=== PATIENT | male | born 1935 | race Caucasian/White ===

== ENCOUNTER 2016-05-29 09:06 | Outpatient (CLI) | payer MEDICARE | END 2016-05-29 09:07 | disposition home or self-care (01) | DX: I48.91 Unspecified atrial fibrillation (principal) ==

== ENCOUNTER 2016-06-25 08:43 | Observation (INO) | payer MEDICARE ==
[2016-06-25] MEDS ORDERED: METOPROLOL 5 MG/5 ML VIAL IVP STA (08:58)
[2016-06-25] MEDS ORDERED: LEVALBUTEROL 1.25 MG INH STA ×2 (08:58→11:03)
[2016-06-25] MEDS ORDERED: LEVALBUTEROL 1.25 MG INH ONE ×2 (09:06→11:16)
[2016-06-25] MEDS ORDERED: SODIUM CHLORIDE INHALATION 3 ML NEB ONE ×2 (09:06→11:16)
[2016-06-25] MEDS ORDERED: METOPROLOL 5 MG/5 ML VIAL IVP ONE (09:24)
[2016-06-25] MEDS ORDERED: BENZONATATE 100 MG CAPSULE PO STA (12:55)
[2016-06-25] MEDS ORDERED: methylPREDNISolone SUCCINATE 125 MG/2 ML VIAL IVP STA (12:55)
[2016-06-25] MEDS ORDERED: guaiFENesin/CODEINE 5 ML UDC PO STA (12:55)
[2016-06-25] MEDS ORDERED: methylPREDNISolone SUCCINATE 125 MG/2 ML VIAL IVP ONE ×2 (13:07→19:15)
[2016-06-25] MEDS ORDERED: guaiFENesin/CODEINE 5 ML UDC ONE (13:07)
[2016-06-25] MEDS ORDERED: BENZONATATE 100 MG CAPSULE PO ONE (13:07)
[2016-06-25] MEDS ORDERED: SODIUM CHLORIDE FLUSH 0.9% 10 ML SYRINGE IVP PRN (14:16)
[2016-06-25] MEDS ORDERED: ACETAMINOPHEN 325 MG TABLET PO PRN (14:16)
[2016-06-25] MEDS ORDERED: ONDANSETRON ODT 4 MG TABLET TL PRN (14:16)
[2016-06-25] MEDS: NEUTRA-PHOS 250 MG TABLET PO SCH (18:31)
[2016-06-25] MEDS: BENZONATATE 100 MG CAPSULE PO PRN (19:10)
[2016-06-25] MEDS: SODIUM CHLORIDE FLUSH 0.9% 10 ML SYRINGE IVP SCH (19:10)
[2016-06-25] MEDS ORDERED: amLODIPine 5 MG TABLET PO SCH (21:56)
[2016-06-25] MEDS ORDERED: METOPROLOL SUCCINATE 50 MG TABLET PO SCH (21:57)
[2016-06-25] MEDS: SODIUM CHLORIDE INHALATION 3 ML NEB INH PRN (22:00)
[2016-06-25] MEDS: LEVALBUTEROL 1.25 MG INH PRN (22:00)
[2016-06-26] MEDS: BENZONATATE 100 MG CAPSULE PO PRN (05:37)
[2016-06-26] MEDS: SODIUM CHLORIDE FLUSH 0.9% 10 ML SYRINGE IVP SCH (05:37)
[2016-06-26] MEDS ORDERED: METOPROLOL TARTRATE 25 MG TABLET PO SCH (07:16)
[2016-06-26] MEDS: LEVALBUTEROL 1.25 MG INH PRN (07:38)
[2016-06-26] MEDS: SODIUM CHLORIDE INHALATION 3 ML NEB INH PRN (07:38)
[2016-06-26] MEDS ORDERED: hydroCHLOROthiazide 25 MG TABLET PO SCH (09:00)
[2016-06-26] MEDS ORDERED: FAMOTIDINE 20 MG TABLET PO SCH (09:00)
[2016-06-26] MEDS ORDERED: FUROSEMIDE 20 MG/2 ML VIAL IVP SCH (09:00)
[2016-06-26] MEDS ORDERED: PRAVASTATIN 40 MG TABLET PO SCH (09:00)
[2016-06-26] MEDS ORDERED: FINASTERIDE 5 MG TABLET PO SCH (09:00)
[2016-06-26] MEDS ORDERED: METOPROLOL SUCCINATE 50 MG TABLET PO SCH (09:00)
[2016-06-26] MEDS ORDERED: ASPIRIN EC 81 MG TABLET PO SCH (09:00)
[2016-06-26] MEDS ORDERED: POLYETHYLENE GLYCOL 3350 17 GM PACKET PO SCH (09:00)
[2016-06-26] MEDS ORDERED: amLODIPine 5 MG TABLET PO SCH (09:00)
[2016-06-26] MEDS: NEUTRA-PHOS 250 MG TABLET PO SCH (09:08)
== END 2016-06-26 11:38 | disposition home or self-care (01) ==
DX: J06.9 Acute upper respiratory infection, unspecified (principal); R55 Syncope and collapse; I48.2 Chronic atrial fibrillation; I25.10 Atherosclerotic heart disease of native coronary artery without angina pectoris; I10 Essential (primary) hypertension; G47.33 Obstructive sleep apnea (adult) (pediatric); N40.0 Benign prostatic hyperplasia without lower urinary tract symptoms; I25.2 Old myocardial infarction; Z79.01 Long term (current) use of anticoagulants; Z95.1 Presence of aortocoronary bypass graft; Z85.828 Personal history of other malignant neoplasm of skin; Z79.82 Long term (current) use of aspirin; E66.9 Obesity, unspecified; Z68.34 Body mass index [BMI] 34.0-34.9, adult; Z91.19 Patient's noncompliance with other medical treatment and regimen; Z66 Do not resuscitate
CPT/HCPCS: 36415; 71010; 80048; 80053; 80061; 81001; 83036; 83735; 83880; 84100; 84443; 84481; 84484; 85025; 85610; 85651; 86140; 93005; 93010; 93306; 93880; 94640; 96374; 96375; 99284; A9270; G0378

== ENCOUNTER 2016-07-28 10:14 | Outpatient (CLI) | payer MEDICARE | END 2016-07-28 10:15 | disposition home or self-care (01) | LOC: LAB.F 10:14 | PROVIDERS: ATTEND Internal Medicine | DX: I48.91 Unspecified atrial fibrillation (principal) | CPT/HCPCS: 85610 ==

== ENCOUNTER 2016-08-28 12:30 | Outpatient (CLI) | payer MEDICARE | END 2016-08-28 12:31 | disposition home or self-care (01) | LOC: LAB.F 12:30 | PROVIDERS: ATTEND Internal Medicine | DX: I48.91 Unspecified atrial fibrillation (principal) | CPT/HCPCS: 85610 ==

== ENCOUNTER 2016-09-18 07:06 | Day surgery (SDC) | payer MEDICARE ==
[2016-09-18] MEDS ORDERED: KETOROLAC 0.45% OPHTH DROPS ONE (07:15)
[2016-09-18] MEDS ORDERED: PHENYLEPHRINE 2.5% OPHTH 2 ML DROPS ONE (07:15)
[2016-09-18] MEDS ORDERED: CYCLOPENTOLATE 1% OPHTH DROPS 2 ML ONE (07:15)
[2016-09-18] MEDS ORDERED: PROPARACAINE 0.5% OPHTH DROPS 15 ML ONE (07:15)
[2016-09-18] MEDS ORDERED: PHENYLEPHRINE 2.5% OPHTH 2 ML DROPS OPTH ONE (07:40)
[2016-09-18] MEDS ORDERED: CYCLOPENTOLATE 1% OPHTH DROPS 2 ML OPTH ONE (07:40)
[2016-09-18] MEDS ORDERED: KETOROLAC 0.45% OPHTH DROPS OPTH ONE (07:40)
[2016-09-18] MEDS ORDERED: LACTATED RINGERS 500 ML IV ONE (07:40)
[2016-09-18] MEDS ORDERED: PROPARACAINE 0.5% OPHTH DROPS 15 ML OPTH ONE ×2 (07:40→09:06)
[2016-09-18] MEDS ORDERED: EPINEPHrine 1 MG/ML AMP IVP ONE (09:11)
[2016-09-18] MEDS ORDERED: BRIMONIDINE 0.2% OPHTH DROPS 5 ML OPTH ONE (09:11)
[2016-09-18] MEDS ORDERED: TIMOLOL 0.5% OPHTH DROPS OPTH ONE (09:12)
[2016-09-18] MEDS ORDERED: TRIAMCIN/MOXIFLOX/VANCO 1 ML VIAL IO ONE ×2 (09:12)
[2016-09-18] MEDS ORDERED: CHONDR SULF/HYALURONATE SYRINGE IO ONE (09:12)
[2016-09-18] MEDS ORDERED: BSS/LIDOCAINE/EPINEPHRINE 1 ML SYRINGE IO ONE (09:12)
[2016-09-18] MEDS ORDERED: MIDAZOLAM 2 MG/2 ML VIAL IVP ONE (09:14)
[2016-09-18 09:56] VITALS: BP 133/94
--- NOTE | 2016-09-18 10:10 | OPERATIVE REPORT ---
DATE OF SURGERY: 09/18/2016 00:00:00 PREOPERATIVE DIAGNOSIS: Visually significant cataract, left eye. This was his first cataract surgery. POSTOPERATIVE DIAGNOSIS: Visually significant cataract, left eye. This was his first cataract surgery . NAME OF PROCEDURE: Phacoemulsification with posterior chamber intraocular lens implant, left eye. SURGEON: Jevon Harper MD ANESTHESIA: Monitored anesthesia care. COMPLICATIONS: None. OPERATIVE INDICATIONS: This is an 81-year-old man with progressive vision loss in the left eye due to 1-2+ nuclear sclerotic and 3+ cortical cataract. Best corrected visual acuity was 20/40 with glare t o 20/200 in the left eye. Indications for surgery were overall decrease in vision and difficulty trac edi a golf ball. He was consented at length concerning the risks and benefits of cataract surgery af ter which he expressed a desire to proceed with surgery. OPERATIVE PROCEDURE: The patient was taken into OR #2 and placed under monitored anesthesia care. A s urgical time-out was conducted confirming correct patient, correct procedure and correct surgical sit e. He was given topical anesthesia and then prepped and draped in the usual sterile fashion. The eye was entered at the 6- and 3 o'clock positions. Intracameral Shugarcaine was injected into the anterio r chamber followed by Viscoat. 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 Intracameral Shugarcaine was injected in to the anterior chamber followed by Viscoat. A continuous tear curvilinear capsulorrhexis was perform ed. The nucleus was hydrodissected and phacoemulsified. There was some instability of the iris, but n ot so much that it was too difficult to continue the case. The cortex was evacuated using automated i nfusion and aspiration. Provisc was injected in the capsular bag and a 21.5 diopter intraocular lens was inserted into the bag. Approximately 0.7 mL of a mixture of triamcinolone, moxifloxacin, and vanc omycin was injected subconjunctivally in the superior quadrant for infection and inflammation prophyl axis. I/A was used to evacuate the viscoelastic materials. The eye was inflated to physiologic pressu re using balanced salt solution and found to be watertight. The patient was taken from the operating room in good condition and given postoperative instructions. JOB #: [id number] EXT JOB #:[id number]
== END 2016-09-18 07:07 | disposition home or self-care (01) ==
LOC: SDS 07:06
PROVIDERS: ATTEND Ophthalmology
PROC: 08RK3JZ Replacement of Left Lens with Synthetic Substitute, Percutaneous Approach (ICD-10-PCS; principal; 2016-09-18 08:30)
DX: H25.812 Combined forms of age-related cataract, left eye (principal); E78.00 Pure hypercholesterolemia, unspecified; I25.10 Atherosclerotic heart disease of native coronary artery without angina pectoris; I25.2 Old myocardial infarction; N40.0 Benign prostatic hyperplasia without lower urinary tract symptoms; I11.0 Hypertensive heart disease with heart failure; I50.9 Heart failure, unspecified; E78.5 Hyperlipidemia, unspecified; Z79.01 Long term (current) use of anticoagulants; Z95.1 Presence of aortocoronary bypass graft
CPT/HCPCS: 66984; A9270; J3490; V2632

== ENCOUNTER → 2016-10-06 | Outpatient (CLI) | payer MEDICARE | LOC: LAB.F 08:00 | PROVIDERS: ATTEND Internal Medicine | DX: I48.91 Unspecified atrial fibrillation (principal) | CPT/HCPCS: 85610 ==

== ENCOUNTER 2016-11-05 08:57 | Outpatient (CLI) | payer MEDICARE | END 2016-11-05 08:58 | disposition home or self-care (01) | LOC: LAB.F 08:57 | PROVIDERS: ATTEND Internal Medicine | DX: I48.91 Unspecified atrial fibrillation (principal) | CPT/HCPCS: 85610 ==

== ENCOUNTER 2016-11-19 08:56 | Outpatient (CLI) | payer MEDICARE ==
[2016-11-19 13:54] LABS: ALBUMIN/GLOBULIN RATIO 1.6 (1.0-2.2); BILIRUBIN,TOTAL 0.8 mg/dL (0.2-1.0); BUN - BLOOD UREA NITROGEN 14 mg/dL (6-20); CARBON DIOXIDE - CO2 26 mmol/L (21-32); CHLORIDE 103 mmol/L (101-111); CHOL/HDL RATIO 3.9 (<5.0); CHOLESTEROL 138 mg/dL; CREATININE 0.9 mg/dL (0.6-1.2); GFR - MDRD 81 (>89); GLUCOSE 98 mg/dL (70-100); HDL CHOLESTEROL 35 mg/dL; SODIUM 137 mmol/L (135-145); TOTAL PROTEIN 6.8 g/dL (6.7-8.2); TRIGLYCERIDES 167 mg/dL; VLDL CHOLESTEROL 33 mg/dL
[2016-11-19 14:07] LABS: BASOPHILS # (AUTO) 0.1 10^3/uL (0.0-0.1); BASOPHILS % (AUTO) 0.6 %; EOSINOPHILS # (AUTO) 0.2 10^3/uL (0.0-0.7); HCT - HEMATOCRIT 44.1 % (42.0-52.0); HGB - HEMOGLOBIN 14.5 g/dL (14.0-18.0); LYMPHOCYTES # (AUTO) 3.2 10^3/uL (1.5-3.5); LYMPHOCYTES % (AUTO) 32.2 %; MEAN CORPUSCULAR HEMOGLOBIN 27.1 pg (27.0-31.0); MEAN CORPUSCULAR HGB CONC 32.8 g/dL (32.0-36.0); MEAN CORPUSCULAR VOLUME 82.6 fL (80.0-94.0); MEAN PLATELET VOLUME 9.4 fL (7.4-11.4); MONOCYTES # (AUTO) 1.2 10^3/uL (0.0-1.0); MONOCYTES % (AUTO) 11.9 %; NEUTROPHILS # (AUTO) 5.3 10^3/uL (1.5-6.6); NEUTROPHILS % (AUTO) 53.3 %; RED BLOOD COUNT 5.34 10^6/uL (4.70-6.10); RED CELL DISTRIBUTION WIDTH 15.5 % (12.0-15.0); UNCORRECTED WHITE BLOOD COUNT 9.9 x10^3/uL; WHITE BLOOD COUNT 9.9 x10^3/uL (4.8-10.8)
[2016-11-19 14:30] LABS: HEMOGLOBIN A1C 0.68 g/dL
== END 2016-11-19 08:57 | disposition home or self-care (01) ==
LOC: LAB.F 08:56
PROVIDERS: ATTEND Internal Medicine
DX: R73.9 Hyperglycemia, unspecified (principal); E78.5 Hyperlipidemia, unspecified; I25.10 Atherosclerotic heart disease of native coronary artery without angina pectoris; I10 Essential (primary) hypertension; Z79.899 Other long term (current) drug therapy
CPT/HCPCS: 36415; 80053; 80061; 83036; 85025

== ENCOUNTER 2016-12-05 12:47 | Outpatient (CLI) | payer MEDICARE | END 2016-12-05 12:48 | disposition home or self-care (01) | LOC: LAB.F 12:47 | PROVIDERS: ATTEND Internal Medicine | DX: I48.91 Unspecified atrial fibrillation (principal) | CPT/HCPCS: 85610 ==

== ENCOUNTER 2017-05-22 08:44 | Outpatient (CLI) | payer MEDICARE | END 2017-05-22 08:45 | disposition home or self-care (01) | LOC: LAB.F 08:44 | PROVIDERS: ATTEND Internal Medicine | DX: I48.91 Unspecified atrial fibrillation (principal) | CPT/HCPCS: 85610 ==

== ENCOUNTER 2017-06-03 10:17 | Outpatient (CLI) | payer MEDICARE | END 2017-06-03 10:18 | disposition home or self-care (01) | LOC: LAB.F 10:17 | PROVIDERS: ATTEND Internal Medicine | DX: I48.91 Unspecified atrial fibrillation (principal) | CPT/HCPCS: 85610 ==

== ENCOUNTER 2017-06-17 10:23 | Outpatient (CLI) | payer MEDICARE | END 2017-06-17 10:24 | disposition home or self-care (01) | LOC: LAB.F 10:23 | PROVIDERS: ATTEND Internal Medicine | DX: I48.91 Unspecified atrial fibrillation (principal) | CPT/HCPCS: 85610 ==

== ENCOUNTER 2017-07-02 08:49 | Day surgery (SDC) | payer MEDICARE ==
[2017-07-02] MEDS ORDERED: PROPARACAINE 0.5% OPHTH DROPS 15 ML ONE ×2 (09:20→09:52)
[2017-07-02] MEDS ORDERED: KETOROLAC 0.45% OPHTH DROPS ONE (09:20)
[2017-07-02] MEDS ORDERED: CYCLOPENTOLATE 1% OPHTH DROPS 2 ML ONE (09:50)
[2017-07-02] MEDS ORDERED: PHENYLEPHRINE 2.5% OPHTH 2 ML DROPS ONE (09:50)
[2017-07-02] MEDS ORDERED: LACTATED RINGERS 500 ML IV ONE (10:06)
[2017-07-02] MEDS ORDERED: MIDAZOLAM 2 MG/2 ML VIAL IVP ONE (10:12)
[2017-07-02] MEDS ORDERED: TIMOLOL 0.5% OPHTH DROPS OPTH ONE (10:15)
[2017-07-02] MEDS ORDERED: EPINEPHrine 1 MG/ML AMP IVP ONE (10:15)
[2017-07-02] MEDS ORDERED: BRIMONIDINE 0.2% OPHTH DROPS 5 ML OPTH ONE (10:15)
[2017-07-02] MEDS ORDERED: CHONDR SULF/HYALURONATE SYRINGE IO ONE (10:15)
[2017-07-02] MEDS ORDERED: BSS/LIDOCAINE/EPINEPHRINE 1 ML SYRINGE IO ONE (10:16)
[2017-07-02] MEDS ORDERED: TRIAMCIN/MOXIFLOX/VANCO 1 ML VIAL IO ONE (10:16)
[2017-07-02] MEDS ORDERED: PROPARACAINE 0.5% OPHTH DROPS 15 ML RIGHTEYE ONE (10:17)
[2017-07-02 10:43] VITALS: BP 119/87
--- NOTE | 2017-07-02 11:19 | OPERATIVE REPORT ---
DATE OF SERVICE: 07/02/2017 Physician: Jevon Harper MD PREOPERATIVE DIAGNOSIS: Visually significant cataract, right eye. Cataract surgery was performed on the left eye on 09/18/2016. This was a complex surgery due to Flomax causing floppy iris syndrome, so a Malyugin ring was used. POSTOPERATIVE DIAGNOSIS: Visually significant cataract, right eye. Cataract surgery was performed on the left eye on 09/18/2016. This was a complex surgery due to Flomax causing floppy iris syndrome, so a Malyugin ring was used. PROCEDURE PERFORMED: Phacoemulsification with posterior chamber intraocular lens implant, right eye. SURGEON: Jevon Harper M.D. ANESTHESIA: Monitored anesthesia care. COMPLICATIONS: None. OPERATIVE INDICATIONS: This is an 82-year-old man with progressive vision loss in the right eye due to 2+ nuclear sclerotic and 3+ cortical cataract. Best corrected visual acuity was 20/40 with glare to 20/80 in the left eye. Indications for surgery were overall decrease in vision and difficulty tracking a golf ball. He was consented at length concerning risks and benefits of cataract surgery, after which he expressed a desire to proceed with surgery. OPERATIVE PROCEDURE: The patient was taken to the OR #3 and placed under monitored anesthesia care. A surgical timeout was conducted confirming correct patient, correct procedure, and correct surgical site. He was given topical anesthesia and prepped and draped in the usual sterile fashion. The eye was entered at the 12 and 9 o'clock positions. Intracameral Shugarcaine was injected into the anterior chamber, followed by Viscoat. A Malyugin ring was then inserted into the anterior chamber and engaged the pupil at 4 points to dilate and stabilize the iris. A continuous curvilinear capsulorrhexis was then performed. Nucleus was hydrodissected and phacoemulsified. The cortex was evacuated using automated infusion and aspiration. Provisc was injected in the capsular bag, and a 22.0 diopter intraocular lens was inserted into the bag. Approximately 0.7 mL of a mixture of triamcinolone and moxifloxacin was injected subconjunctivally in the superior quadrant. An additional 0.4 mL of vancomycin was also injected in the superior conjunctiva for infection and inflammation prophylaxis. Malyugin ring was then disinserted from the pupil and removed from the anterior chamber without trauma. I and A was then used to evacuate the viscoelastic materials. The eye was inflated to physiologic pressure using balanced salt solution and found to be watertight. The patient was taken from the operating room in good condition and given postoperative instructions. TD: 07/02/2017 10:37
== END 2017-07-02 08:50 | disposition home or self-care (01) ==
LOC: SDS 08:49
PROVIDERS: ATTEND Ophthalmology
PROC: 08RJ3JZ Replacement of Right Lens with Synthetic Substitute, Percutaneous Approach (ICD-10-PCS; principal; 2017-07-02 10:00)
DX: H25.811 Combined forms of age-related cataract, right eye (principal); H21.81 Floppy iris syndrome; T44.6X5A Adverse effect of alpha-adrenoreceptor antagonists, initial encounter; I10 Essential (primary) hypertension; Z79.01 Long term (current) use of anticoagulants
CPT/HCPCS: 66982; A9270; J3490; J7120; V2632

== ENCOUNTER 2017-07-16 13:19 | Outpatient (CLI) | payer MEDICARE | END 2017-07-16 13:20 | disposition home or self-care (01) | LOC: LAB.F 13:19 | PROVIDERS: ATTEND Internal Medicine | DX: I48.91 Unspecified atrial fibrillation (principal) | CPT/HCPCS: 85610 ==

== ENCOUNTER 2017-07-30 09:12 | Outpatient (CLI) | payer MEDICARE ==
[2017-07-30 14:34] LABS: BASOPHILS # (AUTO) 0.1 10^3/uL (0.0-0.1); BASOPHILS % (AUTO) 1.3 %; EOSINOPHILS # (AUTO) 0.2 10^3/uL (0.0-0.7); EOSINOPHILS % (AUTO) 1.4 %; HGB - HEMOGLOBIN 13.7 g/dL (14.0-18.0); LYMPHOCYTES # (AUTO) 3.6 10^3/uL (1.5-3.5); LYMPHOCYTES % (AUTO) 32.5 %; MEAN CORPUSCULAR HEMOGLOBIN 27.5 pg (27.0-31.0); MEAN CORPUSCULAR HGB CONC 32.6 g/dL (32.0-36.0); MEAN CORPUSCULAR VOLUME 84.4 fL (80.0-94.0); MEAN PLATELET VOLUME 8.4 fL (7.4-11.4); MONOCYTES # (AUTO) 1.3 10^3/uL (0.0-1.0); MONOCYTES % (AUTO) 11.7 %; NEUTROPHILS # (AUTO) 5.8 10^3/uL (1.5-6.6); NEUTROPHILS % (AUTO) 53.1 %; PLT - PLATELET COUNT 178 10^3/uL (130-450); RED BLOOD COUNT 4.98 10^6/uL (4.70-6.10); RED CELL DISTRIBUTION WIDTH 16.4 % (12.0-15.0); WHITE BLOOD COUNT 10.9 x10^3/uL (4.8-10.8)
[2017-07-30 14:49] LABS: CALCIUM 8.6 mg/dL (8.5-10.3); CREATININE 0.9 mg/dL (0.6-1.2)
--- NOTE | 2017-07-30 16:02 | XRAY Report ---
Procedure Date: 07/30/2017 Accession Number: [id number] / [id number] Procedure: XR - Chest 2 View X-Ray CPT Code: 49976 FULL RESULT: EXAM: Chest 2 View X-Ray DATE: 07/30/2017 3:15 PM CLINICAL HISTORY: ATRIAL FIBRILLATION COMPARISON: 06/25/2016 and 09/05/2013 TECHNIQUE: 2 views. FINDINGS: Lungs/Pleura: No focal opacities evident. No pneumothorax. Small left pleural effusion.. Normal volumes. Mediastinum: Status post CABG. Heart size borderline. Other: Degenerative change in the spine.. Impression: Borderline heart size status post CABG with tiny left effusion. Otherwise -2 view chest x-ray RADIA
== END 2017-07-30 09:13 | disposition home or self-care (01) ==
LOC: LAB.F 09:12 → LAB 09:13
PROVIDERS: ATTEND Internal Medicine Cardiovascular Disease
DX: I48.91 Unspecified atrial fibrillation (principal); J90 Pleural effusion, not elsewhere classified; I10 Essential (primary) hypertension; I48.2 Chronic atrial fibrillation; R06.09 Other forms of dyspnea
CPT/HCPCS: 36415; 71046; 80048; 82565; 83880; 84132; 84520; 85025; 85610

== ENCOUNTER 2017-08-20 09:50 | Outpatient (CLI) | payer MEDICARE | END 2017-08-20 09:51 | disposition home or self-care (01) | LOC: LAB.F 09:50 | PROVIDERS: ATTEND Internal Medicine | DX: I48.91 Unspecified atrial fibrillation (principal) | CPT/HCPCS: 85610 ==

== ENCOUNTER 2017-09-04 10:00 | Outpatient (CLI) | payer MEDICARE | END 2017-09-04 10:01 | disposition home or self-care (01) | LOC: LAB 10:00 | PROVIDERS: ATTEND Internal Medicine | DX: R06.00 Dyspnea, unspecified (principal); R05 Cough | CPT/HCPCS: 36415; 81599 ==

== ENCOUNTER 2017-09-09 13:03 | Outpatient (CLI) | payer MEDICARE | END 2017-09-09 13:04 | disposition home or self-care (01) | LOC: LAB.F 13:03 | PROVIDERS: ATTEND Internal Medicine | DX: I48.91 Unspecified atrial fibrillation (principal) | CPT/HCPCS: 85610 ==

== ENCOUNTER 2017-10-07 10:37 | Outpatient (CLI) | payer MEDICARE | END 2017-10-07 10:38 | disposition home or self-care (01) | LOC: LAB.F 10:37 | PROVIDERS: ATTEND Internal Medicine | DX: I48.91 Unspecified atrial fibrillation (principal) | CPT/HCPCS: 85610 ==

== ENCOUNTER 2017-10-21 11:19 | Outpatient (CLI) | payer MEDICARE | END 2017-10-21 11:20 | disposition home or self-care (01) | LOC: LAB.F 11:19 | PROVIDERS: ATTEND Internal Medicine | DX: I48.91 Unspecified atrial fibrillation (principal) | CPT/HCPCS: 85610 ==

== ENCOUNTER 2017-11-16 10:09 | Outpatient (CLI) | payer MEDICARE | END 2017-11-16 10:10 | disposition home or self-care (01) | LOC: LAB.F 10:09 | PROVIDERS: ATTEND Internal Medicine | DX: I48.91 Unspecified atrial fibrillation (principal) | CPT/HCPCS: 85610 ==

== ENCOUNTER 2017-12-03 10:31 | Outpatient (CLI) | payer MEDICARE | END 2017-12-03 10:32 | disposition home or self-care (01) | LOC: LAB.F 10:31 | PROVIDERS: ATTEND Internal Medicine | DX: I48.91 Unspecified atrial fibrillation (principal) | CPT/HCPCS: 85610 ==

== ENCOUNTER 2018-05-10 09:53 | Outpatient (CLI) | payer MEDICARE | END 2018-05-10 09:54 | disposition home or self-care (01) | LOC: LAB.F 09:53 | PROVIDERS: ATTEND Internal Medicine | DX: I48.91 Unspecified atrial fibrillation (principal); Z79.01 Long term (current) use of anticoagulants | CPT/HCPCS: 85610 ==

== ENCOUNTER 2018-05-17 10:01 | Outpatient (CLI) | payer MEDICARE | END 2018-05-17 10:02 | disposition home or self-care (01) | LOC: LAB.F 10:01 | PROVIDERS: ATTEND Internal Medicine | DX: I48.91 Unspecified atrial fibrillation (principal); Z79.01 Long term (current) use of anticoagulants | CPT/HCPCS: 85610 ==

== ENCOUNTER 2018-05-24 10:36 | Outpatient (CLI) | payer MEDICARE | END 2018-05-24 10:37 | disposition home or self-care (01) | LOC: LAB.F 10:36 | PROVIDERS: ATTEND Internal Medicine | DX: Z79.01 Long term (current) use of anticoagulants (principal); I48.91 Unspecified atrial fibrillation | CPT/HCPCS: 85610 ==

== ENCOUNTER 2018-05-31 13:10 | Outpatient (CLI) | payer MEDICARE | END 2018-05-31 13:11 | disposition home or self-care (01) | LOC: LAB.F 13:10 | PROVIDERS: ATTEND Internal Medicine | DX: I48.91 Unspecified atrial fibrillation (principal); Z79.01 Long term (current) use of anticoagulants | CPT/HCPCS: 85610 ==

== ENCOUNTER 2018-06-08 10:21 | Outpatient (CLI) | payer MEDICARE | END 2018-06-08 10:22 | disposition home or self-care (01) | LOC: LAB.F 10:21 | PROVIDERS: ATTEND Internal Medicine | DX: I48.91 Unspecified atrial fibrillation (principal); Z79.01 Long term (current) use of anticoagulants | CPT/HCPCS: 85610 ==

== ENCOUNTER 2018-06-15 10:57 | Outpatient (CLI) | payer MEDICARE | END 2018-06-15 10:58 | disposition home or self-care (01) | LOC: LAB.F 10:57 | PROVIDERS: ATTEND Internal Medicine | DX: Z79.01 Long term (current) use of anticoagulants (principal); I48.91 Unspecified atrial fibrillation | CPT/HCPCS: 85610 ==

== ENCOUNTER 2018-07-21 10:56 | Outpatient (CLI) | payer MEDICARE | END 2018-07-21 10:57 | disposition home or self-care (01) | LOC: LAB.F 10:56 | PROVIDERS: ATTEND Internal Medicine | DX: Z79.01 Long term (current) use of anticoagulants (principal); I48.91 Unspecified atrial fibrillation | CPT/HCPCS: 85610 ==

== ENCOUNTER 2018-08-10 08:07 | Outpatient (CLI) | payer MEDICARE ==
--- NOTE | 2018-08-10 13:51 | XRAY Report ---
Reason: DYSPNEA ON EXERTION R06.09 Procedure Date: 08/10/2018 Accession Number: [id number] / [id number] Procedure: XRS - Chest 2 View X-Ray CPT Code: 06200 FULL RESULT: EXAM: CHEST RADIOGRAPHY EXAM DATE: 08/10/2018 08:38 AM. CLINICAL HISTORY: Shortness of breath. COMPARISON: CHEST 2 VIEW 07/30/2017 3:08 PM. TECHNIQUE: 2 views. FINDINGS: Lungs/Pleura: No focal opacities evident. No pleural effusion. No pneumothorax. Normal volumes. Mediastinum: Cardiac silhouette is borderline enlarged. There is borderline pulmonary vascular congestion and edema seen. Median sternotomy wires and surgical clips consistent with CABG is seen. Other: None. IMPRESSION: Borderline CHF/fluid overload. RADIA
== END 2018-08-10 08:08 | disposition home or self-care (01) ==
LOC: DI.S 08:07
PROVIDERS: ATTEND Registered Nurse
DX: I50.9 Heart failure, unspecified (principal)
CPT/HCPCS: 71046

== ENCOUNTER 2018-08-17 08:33 | Outpatient (CLI) | payer MEDICARE ==
[2018-08-17 19:10] LABS: ALBUMIN 4.3 g/dL (3.2-5.5); ALBUMIN/GLOBULIN RATIO 1.4 (1.0-2.2); ALKALINE PHOSPHATASE 77 IU/L (42-121); ALT ALANINE AMINOTRANSFERASE 26 IU/L (10-60); AST ASPARTATE AMINOTRANSFERASE 36 IU/L (10-42); BILIRUBIN,TOTAL 1.5 mg/dL (0.2-1.0); CALCIUM 9.2 mg/dL (8.5-10.3); CARBON DIOXIDE - CO2 24 mmol/L (21-32); CHLORIDE 105 mmol/L (101-111); CHOL/HDL RATIO 4.3 (<5.0); CHOLESTEROL 159 mg/dL; GLUCOSE 100 mg/dL (70-100); HDL CHOLESTEROL 37 mg/dL; LDL CHOLESTEROL,CALCULATED 87 mg/dL; LDL/HDL RATIO 2.4 (<3.6); SODIUM 141 mmol/L (135-145); TOTAL PROTEIN 7.4 g/dL (6.7-8.2); VLDL CHOLESTEROL 35 mg/dL
[2018-08-17 19:20] LABS: BUN - BLOOD UREA NITROGEN 17 mg/dL (6-20); GFR - MDRD 71 (>89)
[2018-08-17 19:32] LABS: HB2 TOTAL 15.5 g/dL; HEMOGLOBIN A1C 0.62 g/dL; HEMOGLOBIN A1C % 5.8 % (4.6-6.2)
== END 2018-08-17 08:34 | disposition home or self-care (01) ==
LOC: LAB.S 08:33
PROVIDERS: ATTEND Internal Medicine
DX: E78.5 Hyperlipidemia, unspecified (principal); I48.91 Unspecified atrial fibrillation; R73.02 Impaired glucose tolerance (oral); Z79.01 Long term (current) use of anticoagulants
CPT/HCPCS: 36415; 80053; 80061; 83036; 83721; 85610

== ENCOUNTER 2018-09-20 13:42 | Outpatient (CLI) | payer MEDICARE | END 2018-09-20 13:43 | disposition home or self-care (01) | LOC: LAB.S 13:42 | PROVIDERS: ATTEND Internal Medicine | DX: I48.91 Unspecified atrial fibrillation (principal); Z79.01 Long term (current) use of anticoagulants | CPT/HCPCS: 85610 ==

== ENCOUNTER 2018-10-20 13:15 | Outpatient (CLI) | payer MEDICARE ==
[2018-10-20 17:46] LABS: CALCIUM 8.9 mg/dL (8.5-10.3); CREATININE 0.9 mg/dL (0.6-1.2)
== END 2018-10-20 13:16 | disposition home or self-care (01) ==
LOC: LAB.S 13:15
PROVIDERS: ATTEND Internal Medicine
DX: Z79.01 Long term (current) use of anticoagulants (principal); I48.91 Unspecified atrial fibrillation
CPT/HCPCS: 36415; 80048; 85610

== ENCOUNTER 2018-10-28 13:19 | Outpatient (CLI) | payer MEDICARE | END 2018-10-28 13:20 | disposition home or self-care (01) | LOC: LAB.S 13:19 | PROVIDERS: ATTEND Internal Medicine | DX: I48.91 Unspecified atrial fibrillation (principal); Z79.01 Long term (current) use of anticoagulants | CPT/HCPCS: 85610 ==

== ENCOUNTER 2018-11-12 13:35 | Outpatient (CLI) | payer MEDICARE | END 2018-11-12 13:36 | disposition home or self-care (01) | LOC: LAB.S 13:35 | PROVIDERS: ATTEND Internal Medicine | DX: I48.91 Unspecified atrial fibrillation (principal); Z79.01 Long term (current) use of anticoagulants | CPT/HCPCS: 85610 ==

== ENCOUNTER 2018-12-03 10:31 | Outpatient (CLI) | payer MEDICARE | END 2018-12-03 10:32 | disposition home or self-care (01) | LOC: LAB.S 10:31 | PROVIDERS: ATTEND Internal Medicine | DX: Z79.01 Long term (current) use of anticoagulants (principal); I48.91 Unspecified atrial fibrillation | CPT/HCPCS: 85610 ==

== ENCOUNTER 2019-04-21 09:26 | Outpatient (CLI) | payer MEDICARE | END 2019-04-21 09:27 | disposition home or self-care (01) | LOC: LAB.S 09:26 | PROVIDERS: ATTEND Internal Medicine | DX: I48.91 Unspecified atrial fibrillation (principal); Z79.01 Long term (current) use of anticoagulants | CPT/HCPCS: 85610 ==

== ENCOUNTER 2019-04-28 10:39 | Outpatient (CLI) | payer MEDICARE | END 2019-04-28 10:40 | disposition home or self-care (01) | LOC: LAB.S 10:39 | PROVIDERS: ATTEND Internal Medicine | DX: I48.91 Unspecified atrial fibrillation (principal); Z79.01 Long term (current) use of anticoagulants | CPT/HCPCS: 85610 ==

== ENCOUNTER 2019-06-07 08:00 | Outpatient (CLI) | payer MEDICARE ==
[2019-06-07 18:12] LABS: BASOPHILS # (AUTO) 0.2 10^3/uL (0.0-0.1); BASOPHILS % (AUTO) 1.7 %; EOSINOPHILS # (AUTO) 1.4 10^3/uL (0.0-0.7); EOSINOPHILS % (AUTO) 10.7 %; HGB - HEMOGLOBIN 15.1 g/dL (14.0-18.0); LYMPHOCYTES # (AUTO) 2.4 10^3/uL (1.5-3.5); LYMPHOCYTES % (AUTO) 18.2 %; MEAN CORPUSCULAR HEMOGLOBIN 28.1 pg (27.0-31.0); MEAN CORPUSCULAR HGB CONC 32.3 g/dL (32.0-36.0); MEAN CORPUSCULAR VOLUME 86.8 fL (80.0-94.0); MEAN PLATELET VOLUME 11.5 fL (7.4-11.4); MONOCYTES # (AUTO) 1.5 10^3/uL (0.0-1.0); MONOCYTES % (AUTO) 11.1 %; NEUTROPHILS # (AUTO) 7.5 10^3/uL (1.5-6.6); NEUTROPHILS % (AUTO) 57.8 %; PLT - PLATELET COUNT 235 10^3/uL (130-450); RED BLOOD COUNT 5.38 10^6/uL (4.70-6.10); RED CELL DISTRIBUTION WIDTH 14.8 % (12.0-15.0)
[2019-06-07 18:28] LABS: ALBUMIN 4.6 g/dL (3.2-5.5); ALBUMIN/GLOBULIN RATIO 1.6 (1.0-2.2); ALKALINE PHOSPHATASE 85 IU/L (42-121); ALT ALANINE AMINOTRANSFERASE 23 IU/L (10-60); AST ASPARTATE AMINOTRANSFERASE 31 IU/L (10-42); BILIRUBIN,TOTAL 0.7 mg/dL (0.2-1.0); BUN - BLOOD UREA NITROGEN 13 mg/dL (6-20); CALCIUM 9.2 mg/dL (8.5-10.3); CARBON DIOXIDE - CO2 24 mmol/L (21-32); CHLORIDE 102 mmol/L (101-111); CHOL/HDL RATIO 4.1 (<5.0); CHOLESTEROL 154 mg/dL; CREATININE 0.8 mg/dL (0.6-1.2); GLUCOSE 106 mg/dL (70-100); HDL CHOLESTEROL 38 mg/dL; LDL CHOLESTEROL,CALCULATED 85 mg/dL; LDL/HDL RATIO 2.2 (<3.6); SODIUM 136 mmol/L (135-145); TOTAL PROTEIN 7.5 g/dL (6.7-8.2); VLDL CHOLESTEROL 31 mg/dL
[2019-06-07 18:35] LABS: PLATELET MORPHOLOGY NORMAL APPEARANCE (NORMAL); RBC MORPHOLOGY (MULTIPLE) NORMAL APPEARANCE (NORMAL)
[2019-06-07 18:36] LABS: DIFFERENTIAL COMMENT MANUAL=AUTO DIFF; PLATELET ESTIMATE, MANUAL NORMAL (130-450,000) (NORMAL)
== END 2019-06-07 23:59 | disposition home or self-care (01) ==
LOC: LAB.WCP 08:00
PROVIDERS: ATTEND Registered Nurse
DX: J45.909 Unspecified asthma, uncomplicated (principal); I50.9 Heart failure, unspecified; E78.5 Hyperlipidemia, unspecified; N40.1 Benign prostatic hyperplasia with lower urinary tract symptoms; N13.8 Other obstructive and reflux uropathy; G47.33 Obstructive sleep apnea (adult) (pediatric); I11.0 Hypertensive heart disease with heart failure
CPT/HCPCS: 36415; 80053; 80061; 83721; 84443; 85025

== ENCOUNTER 2019-06-14 08:00 | Outpatient (CLI) | payer MEDICARE | END 2019-06-14 23:59 | disposition home or self-care (01) | LOC: LAB.WCP 08:00 | PROVIDERS: ATTEND Family Medicine | DX: I48.91 Unspecified atrial fibrillation (principal); R06.09 Other forms of dyspnea; Z79.01 Long term (current) use of anticoagulants | CPT/HCPCS: 36415; 83880 ==

== ENCOUNTER 2019-07-06 12:25 | Emergency (ER) | payer MEDICARE ==
[2019-07-06] MEDS ORDERED: MAGNESIUM CITRATE 296 ML BOTTLE PO STA (14:17)
--- NOTE | 2019-07-06 14:18 | ED Physician Documentation ---
PD HPI ABD PAIN - Stated complaint Stated Complaint: CONSTIPATED - Chief complaint Chief Complaint: Abd Pain - History obtained from History obtained from: Patient (84-year-old gentleman has been constipated for the last 4 days. He has had cramps generally but no severe pain. No rectal pain or pressure. He is tried magnesium Milk of magnesia and Dulcolax without relief. This is never happened before. He is on a new medication, hydralazine, otherwise no clear cause.) Review of Systems Ten Systems: 10 systems reviewed and negative Constitutional: reports: Reviewed and negative Cardiac: reports: Reviewed and negative Respiratory: reports: Reviewed and negative PD PAST MEDICAL HISTORY - Past Medical History Cardiovascular: Congestive heart failure, Hypertension, Coronary artery disease, [place], Atrial fibrillation Respiratory: Shortness of breath, Sleep apnea, Other GI: Colon polyps, Hepatitis : Benign prostate hypertrophy HEENT: Chronic vision loss, Chronic hearing loss Psych: None Musculoskeletal: Osteoarthritis Derm: None - Past Surgical History General: Colonoscopy Cardiovascular: CABG HEENT: Cataracts Derm: Skin cancer surgery - Present Medications Home Medications: Ambulatory Orders Medication Instructions Recorded Confirmed Finasteride [Proscar] 5 mg PO DAILY 08/05/12 07/06/19 Pravastatin Sodium 40 mg PO DAILY 08/05/12 07/06/19 Tamsulosin HCl [Flomax] 0.4 mg PO DAILY 06/26/16 07/06/19 Warfarin Sodium 7.5 mg PO .Q MO, Thu07/01/17 07/06/19 Warfarin [Coumadin] 5 mg PO .Q RAMESH,TU,W,TH,SA 07/01/17 07/06/19 Cetirizine [ZyrTEC] 10 mg PO DAILY 07/06/19 07/06/19 Furosemide [Lasix] 20 mg PO DAILY 07/06/19 07/06/19 Ipratropium/Albuterol [Combivent 4 gm IH DAILY 07/06/19 07/06/19 Respimat] Montelukast [Singulair] 10 mg PO QPM 07/06/19 07/06/19 hydrALAZINE [Apresoline] 25 mg PO BID 07/06/19 07/06/19 - Allergies Allergies/Adverse Reactions: Allergies Allergy/AdvReac Type Severity Reaction Status Date / Time No Known Drug Allergies Allergy Verified 06/25/16 08:48 - Social History Does the pt smoke?: No Smoking Status: Never smoker Does the pt drink ETOH?: Yes Does the pt have substance abuse?: No - Immunizations Immunizations are current?: No PD ED PE NORMAL - Vitals Vital signs reviewed: Yes - General General: Alert and oriented X 3, No acute distress - Cardiac Cardiac: RRR, No murmur - Respiratory Respiratory: No respiratory distress, Clear bilaterally - Abdomen Abdomen: Other (Distended but nontender abdomen with hyperactive bowel tones, nontender) - Rectal Rectal: Other (No stool in the vault) - Neuro Neuro: Alert and oriented X 3, Normal speech Results - Vitals Vitals: Vital Signs - 24 hr 07/06/19 07/06/19 12:40 15:10 Temperature 37 C Heart Rate 85 88 Respiratory 16 16 Rate Blood Pressure 139/85 H 145/103 H O2 Saturation 98 96 Oxygen O2 Source Room air - Labs Labs: Laboratory Tests 07/06/19 07/06/19 07/06/19 15:10 15:10 15:10 WBC 8.9 RBC 5.32 Hgb 14.3 Hct 45.3 MCV 85.2 MCH 26.9 L MCHC 31.6 L RDW 15.6 H Plt Count 213 MPV 10.5 Neut # (Auto) 5.2 Lymph # (Auto) 1.7 B[place] # (Auto) 1.2 H Eos # (Auto) 0.6 Baso # (Auto) 0.1 Absolute Nucleated RBC 0.00 Nucleated RBC % 0.0 PT 35.4 H INR 3.3 H Sodium 137 Potassium 3.4 L Chloride 104 Carbon Dioxide 24 Anion Gap 9.0 BUN 11 Creatinine 0.8 Estimated GFR (MDRD) 92 Glucose 105 H Calcium 8.5 Total Bilirubin 1.3 H AST 42 ALT 59 Alkaline Phosphatase 165 H Total Protein 7.1 Albumin 3.9 Globulin 3.2 Albumin/Globulin Ratio 1.2 Lipase 27 - Rads (name of study) CT KUB Radiology: EMP read contemporaneously PD MEDICAL DECISION MAKING - ED course ED course: 84-year-old gentleman presents with sensation of constipation, cramps and decreased stool output despite laxatives. Benign exam. No fecal impaction on rectal exam. CT is normal without much stool load actually. Labs were relatively unremarkable as well. Discussed with him that we should try watchful waiting and he should go back to a normal diet without laxatives at this time and return if worse. Departure - Departure Disposition: 01 Home, Self Care Clinical Impression: Abdominal pain Qualifiers: Abdominal location: generalized Qualified Code(s): R10.84 - Generalized abdominal pain Condition: Good Record reviewed to determine appropriate education?: Yes Instructions: ED Abdominal Pain Unkn Cause Comments: The CAT scan is normal; not a lot of stool load. Suspect persistent symptoms due to laxatives. Stop the laxatives and start a normal diet. Return if worse, or if not improving in 12-24 hours. INR today was a bit high at 3.3, 1/2 dose of blood thinner with next dose. Followup with your doctor next week regardless.
--- NOTE | 2019-07-06 15:08 | CT Report ---
Reason: abd pain Procedure Date: 07/06/2019 Accession Number: [id number] / [id number] Procedure: CT - Abdomen/Pelvis WO CPT Code: Final Report FULL RESULT: EXAM: CT ABDOMEN AND PELVIS (CT KUB) EXAM DATE: 07/06/2019 02:52 PM. CLINICAL HISTORY: Abd pain. COMPARISONS: None. TECHNIQUE: Routine axial helical CT imaging was performed through the abdomen and pelvis without IV contrast. Reconstructions: Coronal and sagittal. In accordance with CT protocol optimization, one or more of the following dose reduction techniques were utilized for this exam: automated exposure control, adjustment of mA and/or KV based on patient size, or use of iterative reconstructive technique. FINDINGS: Lung Bases: Unremarkable. Right Kidney/Ureter: No stones, hydronephrosis, or hydroureter. No perinephric fat stranding. Left Kidney/Ureter: An exophytic 2 cm simple cyst in lower pole of left kidney. No further follow-up required for simple renal cysts. No stones, hydronephrosis, or hydroureter. No perinephric fat stranding. Other Solid Organs: Noncontrast images of the solid organs are grossly unremarkable. Gallbladder/Bile Ducts: Unremarkable. Peritoneal Cavity: Diffuse colonic diverticulosis however no diverticulitis. Appendix not seen in right lower quadrant, however there is no inflammation. No free fluid, free air or crispin adenopathy. Bowel is grossly unremarkable. Pelvic Organs: No bladder stones or wall thickening. Noncontrast images of the visualized pelvic organs are unremarkable. Vasculature: Unremarkable. Other: None. IMPRESSION: No urinary tract stones or obstruction. No other significant abnormality. RADIA
[2019-07-06 15:18] LABS: BASOPHILS # (AUTO) 0.1 10^3/uL (0.0-0.1); BASOPHILS % (AUTO) 1.2 %; EOSINOPHILS # (AUTO) 0.6 10^3/uL (0.0-0.7); EOSINOPHILS % (AUTO) 6.9 %; HGB - HEMOGLOBIN 14.3 g/dL (14.0-18.0); LYMPHOCYTES # (AUTO) 1.7 10^3/uL (1.5-3.5); LYMPHOCYTES % (AUTO) 19.1 %; MEAN CORPUSCULAR HEMOGLOBIN 26.9 pg (27.0-31.0); MEAN CORPUSCULAR HGB CONC 31.6 g/dL (32.0-36.0); MEAN CORPUSCULAR VOLUME 85.2 fL (80.0-94.0); MEAN PLATELET VOLUME 10.5 fL (7.4-11.4); MONOCYTES # (AUTO) 1.2 10^3/uL (0.0-1.0); MONOCYTES % (AUTO) 13.2 %; NEUTROPHILS # (AUTO) 5.2 10^3/uL (1.5-6.6); NEUTROPHILS % (AUTO) 58.8 %; PLT - PLATELET COUNT 213 10^3/uL (130-450); RED BLOOD COUNT 5.32 10^6/uL (4.70-6.10); RED CELL DISTRIBUTION WIDTH 15.6 % (12.0-15.0); WHITE BLOOD COUNT 8.9 x10^3/uL (4.8-10.8)
[2019-07-06 15:29] LABS: INR 3.3 (0.8-1.2); PT - PROTHROMBIN TIME 35.4 secs (9.9-12.6)
[2019-07-06 15:36] LABS: ALBUMIN 3.9 g/dL (3.2-5.5); ALBUMIN/GLOBULIN RATIO 1.2 (1.0-2.2); BILIRUBIN,TOTAL 1.3 mg/dL (0.2-1.0); CALCIUM 8.5 mg/dL (8.5-10.3); CREATININE 0.8 mg/dL (0.6-1.2); TOTAL PROTEIN 7.1 g/dL (6.7-8.2)
[2019-07-06 16:01] VITALS: BP 132/89
== END 2019-07-06 16:01 | disposition home or self-care (01) ==
LOC: ED 12:25
DX: R10.84 Generalized abdominal pain (principal); I11.0 Hypertensive heart disease with heart failure; I50.9 Heart failure, unspecified; I48.91 Unspecified atrial fibrillation; Z79.01 Long term (current) use of anticoagulants
CPT/HCPCS: 36415; 74176; 80053; 83690; 85025; 85610; 99284; A9270

== ENCOUNTER 2019-07-15 08:00 | Outpatient (CLI) | payer MEDICARE | END 2019-07-15 23:59 | disposition home or self-care (01) | LOC: LAB.WCP 08:00 | PROVIDERS: ATTEND Internal Medicine | DX: I48.91 Unspecified atrial fibrillation (principal); Z79.01 Long term (current) use of anticoagulants ==

== ENCOUNTER 2019-08-01 09:16 | Emergency (ER) | payer MEDICARE ==
--- NOTE | 2019-08-01 09:50 | ED Physician Documentation ---
PD HPI DYSPNEA - Stated complaint Stated Complaint: HIGH BLOOD PRESSURE - Chief complaint Chief Complaint: Resp - History obtained from History obtained from: Patient - History of Present Illness Timing - onset: How many days ago (4) Timing - onset during: Light activity (has had 4 days of increasing dyspnea with activity.) Timing - duration: Days (4) Timing - details: Gradual onset, Still present (more notable today.) Inciting event(s): No: URI Improved by: Rest Worsened by: Exertion. No: Laying flat, Coughing Associated symptoms: Cough (mild chronic). No: Fever, Hemoptysis, Wheezing, Chest pain / discomfort, Palpitations, Bilateral edema Similar symptoms before: Diagnosis (has had remote CAD/angina with CABG 1998. Also with Dx of some asthma/COPD. Says he had similar dyspnea last winter in [place] and was Rx with inhalers and diuretic. 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 denies: Wheezing GI: denies: Nausea, Vomiting, Diarrhea Musculoskeletal: denies: Extremity swelling Neurologic: reports: Generalized weakness. denies: Focal weakness, Numbness, Near syncope, Altered mental status, Headache PD PAST MEDICAL HISTORY - Past Medical History Cardiovascular: Congestive heart failure, Hypertension, Coronary artery disease, [place], Atrial fibrillation (chronic) Respiratory: COPD, Shortness of breath, Sleep apnea, Other GI: Colon polyps, Hepatitis : Benign prostate hypertrophy HEENT: Chronic vision loss, Chronic hearing loss Psych: None Musculoskeletal: Osteoarthritis Derm: None - Past Surgical History General: Colonoscopy Cardiovascular: CABG HEENT: Cataracts Derm: Skin cancer surgery - Present Medications Home Medications: Ambulatory Orders Medication Instructions Recorded Confirmed Finasteride [Proscar] 5 mg PO DAILY 08/05/12 07/06/19 Pravastatin Sodium 40 mg PO DAILY 08/05/12 07/06/19 Tamsulosin HCl [Flomax] 0.4 mg PO DAILY 06/26/16 07/06/19 Warfarin Sodium 7.5 mg PO .Q MO, Thu07/01/17 07/06/19 Warfarin [Coumadin] 5 mg PO .Q RAMESH,TU,W,TH,SA 07/01/17 07/06/19 Cetirizine [ZyrTEC] 10 mg PO DAILY 07/06/19 07/06/19 Furosemide [Lasix] 20 mg PO DAILY 07/06/19 07/06/19 Ipratropium/Albuterol [Combivent 4 gm IH DAILY 07/06/19 07/06/19 Respimat] Montelukast [Singulair] 10 mg PO QPM 07/06/19 07/06/19 hydrALAZINE [Apresoline] 25 mg PO BID 07/06/19 07/06/19 - Allergies Allergies/Adverse Reactions: Allergies Allergy/AdvReac Type Severity Reaction Status Date / Time No Known Drug Allergies Allergy Verified 08/01/19 09:27 - Social History Does the pt smoke?: No Smoking Status: Never smoker Does the pt drink ETOH?: Yes Does the pt have substance abuse?: No - Immunizations Immunizations are current?: No PD ED PE NORMAL - Vitals Vital signs reviewed: Yes (BP quite elevated at 201/114 systolic) - General General: Alert and oriented X 3, No acute distress, Well developed/nourished - HEENT HEENT: Moist mucous membranes, Pharynx benign - Neck Neck: Supple, no meningeal sign, No adenopathy, No JVD - Cardiac Cardiac: No murmur. No: RRR (irregular but good rate) - Respiratory Respiratory: No: Clear bilaterally (some prolonged exp phase without wheezing per se. faint crackles at bases only. No coarse sounds. ) - Abdomen Abdomen: Soft, Non tender Results - Vitals Vitals: Vital Signs - 24 hr 08/01/19 08/01/19 08/01/19 09:24 09:27 09:38 Temperature 97.3 C H 36.7 C Heart Rate 67 93 103 H Respiratory 16 20 16 Rate Blood Pressure 152/123 H 201/114 H 201/140 H O2 Saturation 97 99 99 08/01/19 08/01/19 08/01/19 10:47 11:34 13:00 Temperature Heart Rate 81 72 80 Respiratory 21 18 20 Rate Blood Pressure 167/106 H 150/123 H O2 Saturation 96 99 Oxygen O2 Source Room air - EKG (time done) 09:32 Rate: Rate (enter#) (99) Rhythm: Atrial fibrillation, Other (some PVCs) [place]: Normal QRS: Normal Ischemia: Normal ST segments. No: ST elevation c/w ischemia, ST depression Compare to prior EKG: Unchanged from prior EKG (2017) - Labs Labs: Laboratory Tests 08/01/19 08/01/19 08/01/19 10:05 10:05 10:05 WBC 9.3 RBC 5.37 Hgb 14.6 Hct 46.0 MCV 85.7 MCH 27.2 MCHC 31.7 L RDW 15.6 H Plt Count 174 MPV 10.4 Neut # (Auto) 4.9 Lymph # (Auto) 2.7 Avery # (Auto) 1.3 H Eos # (Auto) 0.4 Baso # (Auto) 0.1 Absolute Nucleated RBC 0.00 Nucleated RBC % 0.0 PT INR Sodium 138 Potassium 4.0 Chloride 103 Carbon Dioxide 25 Anion Gap 10.0 BUN 12 Creatinine 0.8 Estimated GFR (MDRD) 92 Glucose 112 H Calcium 8.8 Magnesium Total Bilirubin 1.2 H AST 29 ALT 21 Alkaline Phosphatase 113 Troponin I High Sens 15.0 B-Natriuretic Peptide Total Protein 7.4 Albumin 4.3 Globulin 3.1 Albumin/Globulin Ratio 1.4 Lipase 69 H 08/01/19 08/01/19 08/01/19 10:05 10:05 10:38 WBC RBC Hgb Hct MCV MCH MCHC RDW Plt Count MPV Neut # (Auto) Lymph # (Auto) Avery # (Auto) Eos # (Auto) Baso # (Auto) Absolute Nucleated RBC Nucleated RBC % PT 21.5 H INR 2.0 H Sodium Potassium Chloride Carbon Dioxide Anion Gap BUN Creatinine Estimated GFR (MDRD) Glucose Calcium Magnesium 2.0 Total Bilirubin AST ALT Alkaline Phosphatase Troponin I High Sens B-Natriuretic Peptide 133 H Total Protein Albumin Globulin Albumin/Globulin Ratio Lipase - Rads (name of study) chest xray Radiology: Prelim report reviewed (mild interstitial changes c/w edema. blunted left angle/ mild effusion. ), See rad report PD MEDICAL DECISION MAKING - ED course Complexity details: reviewed results, re-evaluated patient (BP improved to reasonable level of 153 systolic and he is feeling better, with combo of nebulizer, diuretic, Metoprolol and NTG. I think he has combination of some asthma exac, with HTN and subsequent CHF acutely due to it (does not appear significantly fluid overloaded, so main focus was BP control), considered differential (history of CABG with dyspnea. Noted high BP at home. Also with some history of COPD/asthma, and has appt with [employer]ing [employer] Cl[employer] Tender tomorrow by coincidence. Has MDIs at home but does not use regularly. ), d/w patient, d/w family () Departure - Departure Disposition: Home, Self Care Clinical Impression: Mild chronic obstructive pulmonary disease Dyspnea Qualifiers: Dyspnea type: dyspnea on exertion Qualified Code(s): R06.00 - Dyspnea, unspecified Pulmonary edema Qualifiers: Chronicity: acute Qualified Code(s): J81.0 - Acute pulmonary edema Hypertension Qualifiers: Hypertension type: unspecified Qualified Code(s): I10 - Essential (primary) hypertension Condition: Stable Record reviewed to determine appropriate education?: Yes Follow-Up: Skinny Sweet MD [Primary Care Provider] - Anatoly Arambula MD [Physician No Access] - Comments: Use your usual inhalers of the Combivent and also albuterol 2 puffs 3 or 4 times a day for the next couple of days. Follow-up with your associate counsel tomorrow as planned. Let them know we gave a single dose of Decadron 10 mg steroid today for possibility of exacerbation of your asthma. Your chest x-ray showed some signs of mild fluid in the lungs but your troponin was negative showing no signs of heart injury. We gave an extra dose of diuret ic here and continue your normal oral diuretic at home. Your blood pressure was quite elevated here and decreased to an appropriate level. If you find your blood pressure remains a little elevated at home, then take your metoprolol 25 mg daily for the next several days. Meanwhile contact your core composer feeder office for follow-up appointment. I think your symptoms are a combination of all 3 factors of some element of bronchial inflammation as well as your blood pressure elevation and some fluid accumulation in the lungs. Discharge Date/Time: 08/01/19 13:21
--- NOTE | 2019-08-01 10:02 | XRAY Report ---
PROCEDURE: Chest 1 View X-Ray INDICATIONS: Chest pain TECHNIQUE: One view of the chest was acquired. COMPARISON: Chest x-ray 08/10/2018 FINDINGS: Surgical changes and devices: Sternal wires. Lungs and pleura: Mild appearance of increased pulmonary vascularity. There is blunting of the left c ostophrenic angle. Mediastinum: Mediastinal contours appear normal. Heart size is enlarged. Bones and chest wall: No suspicious bony lesions. Overlying soft tissues appear unremarkable. IMPRESSION: Female with increased vascularity suggestive of edema. Mild left effusion is noted. Reviewed by: Renata Pelletier MD on 08/01/2019 10:01 AM PDT Approved by: Renata Pelletier MD on 08/01/2019 10:01 AM PDT Station ID: [id number]
[2019-08-01 10:12] LABS: BASOPHILS # (AUTO) 0.1 10^3/uL (0.0-0.1); BASOPHILS % (AUTO) 1.1 %; EOSINOPHILS # (AUTO) 0.4 10^3/uL (0.0-0.7); EOSINOPHILS % (AUTO) 4.3 %; HGB - HEMOGLOBIN 14.6 g/dL (14.0-18.0); LYMPHOCYTES # (AUTO) 2.7 10^3/uL (1.5-3.5); LYMPHOCYTES % (AUTO) 28.5 %; MEAN CORPUSCULAR HEMOGLOBIN 27.2 pg (27.0-31.0); MEAN CORPUSCULAR HGB CONC 31.7 g/dL (32.0-36.0); MEAN CORPUSCULAR VOLUME 85.7 fL (80.0-94.0); MEAN PLATELET VOLUME 10.4 fL (7.4-11.4); MONOCYTES # (AUTO) 1.3 10^3/uL (0.0-1.0); MONOCYTES % (AUTO) 13.4 %; NEUTROPHILS # (AUTO) 4.9 10^3/uL (1.5-6.6); NEUTROPHILS % (AUTO) 52.5 %; PLT - PLATELET COUNT 174 10^3/uL (130-450); RED BLOOD COUNT 5.37 10^6/uL (4.70-6.10); RED CELL DISTRIBUTION WIDTH 15.6 % (12.0-15.0); WHITE BLOOD COUNT 9.3 x10^3/uL (4.8-10.8)
[2019-08-01 10:27] LABS: ALBUMIN 4.3 g/dL (3.2-5.5); ALBUMIN/GLOBULIN RATIO 1.4 (1.0-2.2); BILIRUBIN,TOTAL 1.2 mg/dL (0.2-1.0); CALCIUM 8.8 mg/dL (8.5-10.3); CREATININE 0.8 mg/dL (0.6-1.2); TOTAL PROTEIN 7.4 g/dL (6.7-8.2)
[2019-08-01] MEDS ORDERED: METOPROLOL 5 MG/5 ML VIAL IVP STA (10:33)
[2019-08-01] MEDS ORDERED: IPRATROPIUM/ALBUTEROL 3 ML NEB INH STA (10:33)
[2019-08-01] MEDS ORDERED: FUROSEMIDE 40 MG/4 ML VIAL IVP STA (10:33)
[2019-08-01] MEDS ORDERED: NITROGLYCERIN SL 0.4 MG TABLET SL STA (10:34)
[2019-08-01 10:51] LABS: PT - PROTHROMBIN TIME 21.5 secs (9.9-12.6)
[2019-08-01] MEDS ORDERED: DEXAMETHASONE 10 MG/ML VIAL IVP STA (13:01)
[2019-08-01 13:12] VITALS: BP 150/123
== END 2019-08-01 13:21 | disposition home or self-care (01) ==
LOC: ED 09:16
DX: I10 Essential (primary) hypertension (principal); J81.0 Acute pulmonary edema; J44.9 Chronic obstructive pulmonary disease, unspecified; I48.91 Unspecified atrial fibrillation; Z79.01 Long term (current) use of anticoagulants; I49.3 Ventricular premature depolarization; I25.10 Atherosclerotic heart disease of native coronary artery without angina pectoris; I25.2 Old myocardial infarction; Z95.1 Presence of aortocoronary bypass graft
CPT/HCPCS: 36415; 71045; 80053; 83690; 83735; 83880; 84484; 85025; 85610; 93005; 94640; 96374; 96375; 99284; A9270

== ENCOUNTER 2019-08-15 08:03 | Outpatient (CLI) | payer MEDICARE | END 2019-08-15 08:04 | disposition home or self-care (01) | LOC: LAB.S 08:03 | PROVIDERS: ATTEND Internal Medicine | DX: I48.91 Unspecified atrial fibrillation (principal); Z79.01 Long term (current) use of anticoagulants | CPT/HCPCS: 85610 ==

== ENCOUNTER 2019-08-29 11:20 | Outpatient (CLI) | payer MEDICARE | END 2019-08-29 11:21 | disposition home or self-care (01) | LOC: LAB.S 11:20 | PROVIDERS: ATTEND Internal Medicine | DX: I48.91 Unspecified atrial fibrillation (principal); Z79.01 Long term (current) use of anticoagulants | CPT/HCPCS: 85610 ==

== ENCOUNTER 2019-08-31 19:44 | Observation (INO) | payer MEDICARE ==
--- NOTE | 2019-08-31 20:09 | ED Physician Documentation ---
History of Present Illness - Stated complaint Stated Complaint: ELEV BP - Chief complaint Chief Complaint: Resp - History obtained from History obtained from: Patient - History of Present Illness Timing: Prior to arrival, How many weeks ago (2) - Additonal information Additional information: 84-year-old male presents to the emergency department with chief complaint of dyspnea and elevated blood pressure. He reports that approximately 1 week ago his gluer and slicer hand stopped the metoprolol which she was taking and instead placed him on hydralazine to be taken BID. It is unclear to me why this change was made. Since this medication change was made his blood pressures have been in the 180s and 200s at home. She denies any chest pain or leg swelling but states that it is difficult for him to take full deep breaths. He has had no nausea vomiting or belly pain. He is noted to have quite a distended belly which she states is normal for him. PMH: htn, chf, CAD/[place], atrial fib, COPD, sleep apnea meds: Finasteride, statin, tamsulosin, coumadin, cetirizine, lasix, montelukast, hydralazine Review of Systems Constitutional: denies: Fever, Chills Cardiac: reports: Palpitations. denies: Chest pain / pressure, Pedal edema, Calf pain Respiratory: reports: Dyspnea. denies: Hemoptysis GI: reports: Abdominal Swelling. denies: Abdominal Pain, Nausea, Vomiting, Constipation, Diarrhea : denies: Dysuria Skin: denies: Rash, Lesions Musculoskeletal: denies: Neck pain, Back pain Neurologic: denies: Generalized weakness, Focal weakness, Syncope, Seizure, Confused, Altered mental status PD PAST MEDICAL HISTORY - Past Medical History Past Medical History: Yes Cardiovascular: Congestive heart failure, Hypertension, Coronary artery disease, [place], Atrial fibrillation Respiratory: COPD, Shortness of breath, Sleep apnea, Other GI: Colon polyps, Hepatitis : Benign prostate hypertrophy HEENT: Chronic vision loss, Chronic hearing loss Psych: None Musculoskeletal: Osteoarthritis Derm: None - Past Surgical History Past Surgical History: Yes General: Colonoscopy Cardiovascular: CABG HEENT: Cataracts Derm: Skin cancer surgery - Present Medications Home Medications: Ambulatory Orders Medication Instructions Recorded Confirmed Finasteride [Proscar] 5 mg PO DAILY 08/05/12 08/31/19 Pravastatin Sodium 40 mg PO DAILY 08/05/12 08/31/19 Tamsulosin HCl [Flomax] 0.4 mg PO DAILY 06/26/16 08/31/19 Warfarin [Coumadin] 5 mg PO .Q RAMESH,TU,W,TH,SA 07/01/17 08/31/19 Cetirizine [ZyrTEC] 10 mg PO DAILY 07/06/19 08/31/19 Furosemide [Lasix] 20 mg PO DAILY 07/06/19 08/31/19 Ipratropium/Albuterol [Combivent 4 gm IH DAILY 07/06/19 08/31/19 Respimat] Montelukast [Singulair] 10 mg PO QPM 07/06/19 08/31/19 hydrALAZINE [Apresoline] 25 mg PO BID 07/06/19 08/31/19 - Allergies Allergies/Adverse Reactions: Allergies Allergy/AdvReac Type Severity Reaction Status Date / Time No Known Drug Allergies Allergy Verified 08/01/19 09:27 - Social History Does the pt smoke?: No Smoking Status: Never smoker Does the pt drink ETOH?: Yes Does the pt have substance abuse?: No - Immunizations Immunizations are current?: No - POLST Patient has POLST: No PD ED PE EXPANDED - General General: Alert, No acute distress, Well developed/nourished - Cardiac Cardiac: Irregularly irregular, Radial strong equal, Pedal strong equal, Cap refill < 2 sec - Respiratory Respiratory: Clear to ausultation erick, Other (dyspneic and tachypneic) - Abdomen Abdomen: Normal Bowel sounds, Distended. No: Tender to palpation - Extremities Extremities: Normal. No: Pedal edema R, Pedal edema L - Neuro Neuro: Alert and Oriented X 3, CNII-XII intact, CN deficit - GCS Eye Opening: Spontaneous Motor: Obeys Commands Verbal: Oriented Total: 15 Results - Vitals Vitals: Vital Signs - 24 hr 08/31/19 08/31/19 08/31/19 19:55 20:00 20:16 Temperature 36.2 C L 36.2 C L Heart Rate 104 H 142 H Respiratory 20 18 Rate Blood Pressure 195/136 H 146/121 H O2 Saturation 95 95 08/31/19 08/31/19 20:39 20:41 Temperature Heart Rate 93 91 Respiratory 22 18 Rate Blood Pressure 173/112 H 173/112 H O2 Saturation 94 94 Oxygen O2 Source Room air - EKG (time done) 1953 Rate: Rate (enter#) (104) Rhythm: Atrial fibrillation [place]: Normal Intervals: Normal NE QRS: Normal Ischemia: Normal ST segments Compare to prior EKG: Unchanged from prior EKG - Labs Labs: Laboratory Tests 08/31/19 08/31/19 08/31/19 19:58 19:58 19:58 WBC 13.4 H RBC 5.34 Hgb 14.1 Hct 44.2 MCV 82.8 MCH 26.4 L MCHC 31.9 L RDW 16.4 H Plt Count 255 MPV 10.7 Neut # (Auto) 7.5 H Lymph # (Auto) 3.9 H Fleming # (Auto) 1.4 H Eos # (Auto) 0.4 Baso # (Auto) 0.1 Absolute Nucleated RBC 0.00 Nucleated RBC % 0.0 Sodium 140 Potassium 3.5 Chloride 102 Carbon Dioxide 24 Anion Gap 14.0 H BUN 14 Creatinine 1.0 Estimated GFR (MDRD) 71 L Glucose 199 H Calcium 9.4 Total Bilirubin 1.8 H AST 29 ALT 30 Alkaline Phosphatase 102 Troponin I High Sens 28.8 H* B-Natriuretic Peptide Total Protein 7.0 Albumin 4.3 Globulin 2.7 Albumin/Globulin Ratio 1.6 Lipase 32 08/31/19 08/31/19 19:58 21:20 WBC RBC Hgb Hct MCV MCH MCHC RDW Plt Count MPV Neut # (Auto) Lymph # (Auto) Fleming # (Auto) Eos # (Auto) Baso # (Auto) Absolute Nucleated RBC Nucleated RBC % Sodium Potassium Chloride Carbon Dioxide Anion Gap BUN Creatinine Estimated GFR (MDRD) Glucose Calcium Total Bilirubin AST ALT Alkaline Phosphatase Troponin I High Sens 26.2 H* B-Natriuretic Peptide 144 H Total Protein Albumin Globulin Albumin/Globulin Ratio Lipase - Rads (name of study) CXR Radiology: Final report received (Suspect mild fluid overload/CHF. Cardiomegaly) PD MEDICAL DECISION MAKING - ED course Complexity details: reviewed old records, reviewed results, re-evaluated patient, d/w patient ED course: 84-year-old male presents to the emergency department with chief complaint of dyspnea and poorly controlled blood pressures at home. He has a longstanding history of hypertension COPD and atrial fibrillation. He was changed from his metoprolol 1 week ago to hydralazine only from his gluer and slicer hand who was concerned with the patients reported dyspnea. - ddx incloudes acs, copd exacerbation, hypertensive urgency - Patient is noted to have a positive troponin at 29. In the setting with a nonischemic EKG this is likely a demand ischemia. We will trend this troponin and repeat to ensure that it is downtrending. repeat trop is 26. - On presentation to the ED he has a blood pressure of 195/136; pt was given 5 hydralazine with minimal effection on BP Pt was then given 5 mg of Toprol all IV and he did have some reduction in blood pressure. It should be noted that his chest x-ray shows some cardiomegaly and possible volume overload. I have ordered 40 mg of Lasix. - Though patient has a downtrending troponin, he does remain dyspneic. I have discussed this case with Dr. Dimas and the patient. The patient elects to come into the hospital under observation for further treatment of his blood pressure and mild heart failure. - Departure - Departure Disposition: ED Place in Observation Clinical Impression: Hypertensive urgency Heart failure Qualifiers: Heart failure type: unspecified Heart failure chronicity: acute Qualified Code(s): I50.9 - Heart failure, unspecified
[2019-08-31 20:12] LABS: BASOPHILS # (AUTO) 0.1 10^3/uL (0.0-0.1); BASOPHILS % (AUTO) 0.7 %; EOSINOPHILS # (AUTO) 0.4 10^3/uL (0.0-0.7); EOSINOPHILS % (AUTO) 3.2 %; HGB - HEMOGLOBIN 14.1 g/dL (14.0-18.0); LYMPHOCYTES # (AUTO) 3.9 10^3/uL (1.5-3.5); LYMPHOCYTES % (AUTO) 29.3 %; MEAN CORPUSCULAR HEMOGLOBIN 26.4 pg (27.0-31.0); MEAN CORPUSCULAR HGB CONC 31.9 g/dL (32.0-36.0); MEAN CORPUSCULAR VOLUME 82.8 fL (80.0-94.0); MEAN PLATELET VOLUME 10.7 fL (7.4-11.4); MONOCYTES # (AUTO) 1.4 10^3/uL (0.0-1.0); MONOCYTES % (AUTO) 10.2 %; NEUTROPHILS # (AUTO) 7.5 10^3/uL (1.5-6.6); PLT - PLATELET COUNT 255 10^3/uL (130-450); RED BLOOD COUNT 5.34 10^6/uL (4.70-6.10); RED CELL DISTRIBUTION WIDTH 16.4 % (12.0-15.0); WHITE BLOOD COUNT 13.4 x10^3/uL (4.8-10.8)
[2019-08-31] MEDS ORDERED: hydrALAZINE INJ 20 MG/ML VIAL IVP STA (20:15)
[2019-08-31 20:26] LABS: ALBUMIN 4.3 g/dL (3.2-5.5); ALBUMIN/GLOBULIN RATIO 1.6 (1.0-2.2); BILIRUBIN,TOTAL 1.8 mg/dL (0.2-1.0); CALCIUM 9.4 mg/dL (8.5-10.3)
[2019-08-31] MEDS ORDERED: METOPROLOL 5 MG/5 ML VIAL IVP STA (21:21)
--- NOTE | 2019-08-31 21:35 | XRAY Report ---
PROCEDURE: Chest 1 View X-Ray INDICATIONS: chest pain TECHNIQUE: One view of the chest was acquired. COMPARISON: CXR earlier today, 08/10/2018. FINDINGS: Surgical changes and devices: Post median sternotomy and CABG.. Lungs and pleura: No pleural effusions or pneumothorax. Mild prominence of the pulmonary vasculature markings particularly in the upper lobes. Mediastinum: Mediastinal contours appear normal. Heart size is enlarged. Bones and chest wall: No suspicious bony lesions. Overlying soft tissues appear unremarkable. IMPRESSION: Suspect mild fluid overload/CHF. Cardiomegaly. Reviewed by: Pravin Montejo MD on 08/31/2019 9:34 PM PDT Approved by: Pravin Montejo MD on 08/31/2019 9:34 PM PDT Station ID: [id number]
[2019-08-31] MEDS ORDERED: FUROSEMIDE 40 MG/4 ML VIAL IVP STA (21:49)
[2019-08-31] MEDS ORDERED: ONDANSETRON 4 MG/2 ML VIAL IVP PRN (22:14)
[2019-08-31] MEDS ORDERED: ACETAMINOPHEN 325 MG TABLET PO PRN (22:14)
[2019-08-31] MEDS ORDERED: SODIUM CHLORIDE FLUSH 0.9% 10 ML SYRINGE IVP PRN (22:14)
[2019-08-31] MEDS ORDERED: amLODIPine 5 MG TABLET PO STA (22:14)
--- NOTE | 2019-08-31 22:18 | HISTORY & PHYSICAL EXAMINATION ---
Chief Complaint - Chief Complaint Chief Complaint: Dyspnea and elevated blood pressure History of Present Illness - Admitted From Admitted From:: Home - History Obtained From Records Reviewed: Yes History obtained from: Patient, ER Provider, EMR - History of Present Illness HPI Comment/Other: This is a very pleasant 84-year-old male with a past medical history significant for COPD/asthma, hypertension, coronary artery disease status post CABG, BPH, atrial fibrillation on coumadin who presents today due to having an elevated blood pressure at home as well as complaining of dyspnea. He reports he has been short of breath for the past few weeks but this has really progressed over the past 3 to 4 days. He has had no cough but has had worsening dyspnea at rest but quite severe with minimal exertion. He has not noticed any worsening of his minor lower extremity edema. He denies any chest pain. Reports no fevers, chills, nasal congestion, sore throat. Denies any recent sick contacts. He denies any orthopnea. He states his blood pressure has been elevated over the past week as high as nearly a systolic of 200. He reports he was previously on metoprolol and hydralazine by his bottle house quality control technician discontinued metoprolol about 2 weeks ago as he felt it may have been exacerbating his asthma. He states that since then, his blood pressure has been elevated when it was previously pretty well controlled. He does report a prior history of coronary artery disease and he had a CABG in 1998 at [facility] in [place]. He has had difficulty making a cardiology appointment recently but has been able to speak to his emulsification operator over the phone a few times. He does take aspirin and pravastatin. The patient does report that he was hospitalized at the end of March for a week in [place] due to sepsis from pneumonia. He states he felt like he returned to baseline a few weeks after that hospitalization. He denies any smoking. In the emergency department, he was found to be afebrile with temperature of 36.2 C. His heart rate varied from 104 to 142 and he was in atrial fibrillation. His initial blood pressure was 195/136. His respiratory was 20 and he was saturating 95% on room air. Lab significant for a white count of 13.4. His initial troponin was 28.8 but this decreased to 26.2 approximately 1.5 hours later. His BNP was elevated at 144 which was close to his baseline. His chest x-ray was suggestive of mild pulmonary vascular congestion and cardiomegaly. His EKG showed atrial fibrillation with occasional PVCs. No obvious ST segment changes. He received 5 mg of Lopressor IV in the emergency department as well as 5 mg of Hydralazine IV. He also received 40 mg of Lasix IV. Given his ongoing dyspnea fact that his blood pressure remained elevated, medicine was consulted for admission. I did discuss goals of care the patient he would like to be a DNR. History - Past Medical History Cardiovascular: reports: Congestive heart failure, Hypertension, Coronary artery disease, [place], Atrial fibrillation Respiratory: reports: COPD, Shortness of breath, Sleep apnea GI: reports: Colon polyps, Hepatitis : reports: Benign prostate hypertrophy HEENT: reports: Chronic vision loss, Chronic hearing loss Psych: reports: None Musculoskeletal: reports: Osteoarthritis Derm: reports: None MRSA Hx?: No - Past Surgical History General: reports: Colonoscopy Cardiovascular: reports: CABG HEENT: reports: Cataracts Derm: reports: Skin cancer surgery - Family & Social History Family History Comment/Other: He reports his father from alcoholism. He believes he had heart disease. He has a younger brother who from myocardial infarction. He has 2 other brothers with coronary artery disease. His paternal grandmother had diabetes. Living arrangement: At home Living Situation: With spouse/s.o. Social History Notes: He lives at home with his . 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 He initially grew up in [facility] and moved back to the [place] in the . He reports occasional smoking of cigars when he was younger but denies any cigarette use and he no longer smokes cigars. He reports consuming an occasional alcoholic beverage. - POLST Patient has POLST: No Meds/Allgy - Home Medications Home Medications: Ambulatory Orders Medication Instructions Recorded Confirmed Finasteride [Proscar] 5 mg PO DAILY 08/05/12 08/31/19 Pravastatin Sodium 40 mg PO DAILY 08/05/12 08/31/19 Tamsulosin HCl [Flomax] 0.4 mg PO DAILY 06/26/16 08/31/19 Warfarin [Coumadin] 5 mg PO .Q RAMESH,TU,W,TH,SA 07/01/17 08/31/19 Cetirizine [ZyrTEC] 10 mg PO DAILY 07/06/19 08/31/19 Furosemide [Lasix] 20 mg PO DAILY 07/06/19 08/31/19 Ipratropium/Albuterol [Combivent 4 gm IH DAILY 07/06/19 08/31/19 Respimat] Montelukast [Singulair] 10 mg PO QPM 07/06/19 08/31/19 hydrALAZINE [Apresoline] 25 mg PO BID 07/06/19 08/31/19 - Allergies Allergies/Adverse Reactions: Allergies Allergy/AdvReac Type Severity Reaction Status Date / Time No Known Drug Allergies Allergy Verified 08/01/19 09:27 Review of Systems - Constitutional Constitutional: denies: Fatigue, Fever, Chills, Weakness - Eyes Eyes: denies: Blurred vision - Ears, Nose & Throat Ears, Nose & Throat: denies: Nasal discharge, Nasal congestion, Sore throat - Cardiovascular Cariovascular: reports: Exertional dyspnea, Decr. exercise tolerance. denies: Palpitations, Chest pain, Edema, Lightheadedness - Respiratory Respiratory: reports: SOB at rest, SOB with exertion. denies: Cough, Wheezing - Gastrointestinal Gastrointestinal: denies: Abdominal pain, Constipation, Diarrhea, Nausea, Vomiting - Genitourinary Genitourinary: denies: Dysuria, Frequency, Urgency, Hematuria - Musculoskeletal Musculoskeletal: denies: Limited range of motion, Muscle weakness - Integumentary Integumentary: denies: Rash - Neurological Neurological: denies: General weakness, Focal weakness, Dizziness - Hematologic/Lymphatic Hematologic/Lymphatic: denies: Bleeding tendencies - All Other Systems All Other Systems: reports: Reviewed and negative Prior Level of Functionality: He is independent with his ADLs Exam - Vital Signs Vital Signs: Vital Signs x48h Temp Pulse Resp BP Pulse Ox 08/31/19 20:41 91 18 173/112 H 94 08/31/19 20:39 93 22 173/112 H 94 08/31/19 20:16 36.2 C L 08/31/19 20:00 36.2 C L 142 H 18 146/121 H 95 08/31/19 19:55 104 H 20 195/136 H 95 - Physical Exam General Appearance: positive: No acute distress, Alert Eyes Bilateral: positive: Normal inspection ENT: positive: ENT inspection nml Neck: positive: Nml inspection Respiratory: positive: No respiratory distress, Other (He is not in respiratory distress but he is tachypneic primarily when he is speaking.Breath sounds are slightly diminished in the bases.). negative: Wheezes, Rales Cardiovascular: positive: Irregularly irregular, Tachycardia. negative: Bradycardia, Systolic murmur Abdomen: positive: Non-tender, No distention. negative: Tenderness, Guarding, Rebound Skin: positive: Warm, Dry Extremities: positive: Full ROM, Pedal edema (Trace pitting edema in the bilateral lower extremities.) Neurologic/Psychiatric: positive: Oriented x3, Motor nml. negative: Disoriented to person, Disoriented to place, Disoriented to time Conclusion/Plan - Problem List (1) Hypertensive urgency Conclusion/Plan: He presented with a systolic blood pressure over 195 and diastolic of 136. His chest x-ray does show mild CHF but this has been present on prior imaging. His troponin is also mildly elevated but is trending down and his EKG does not suggest ischemia. I do not believe that this is hypertensive emergency. Suspect this was brought on by his recent change in antihypertensives. He is only on hydralazine 25 mg twice daily at home. At this time, we will start him on amlodipine 5 mg daily as well as metoprolol 25 mg twice daily in addition to the hydralazine which will be continued. Will use labetalol IV as needed for a systolic blood pressure greater than 160 or diastolic greater than 110. We will monitor him on telemetry and trend his troponin. Will obtain echocardiogram. Low-sodium diet. (2) Acute on chronic diastolic (congestive) heart failure Conclusion/Plan: Does complain of dyspnea although he is not hypoxic or tachypneic. Chest x-ray does show mild pulmonary vascular congestion which has been present on prior imaging. The most recent echocardiogram available to me shows ejection fraction was 45 to 50% so suspect is likely diastolic heart failure. Suspect this may have been brought on by discontinuation of his metoprolol which has caused him t o be tachycardic given his atrial fibrillation. His BNP is in the low 100s which appears to be his baseline. He did receive a dose of IV Lasix 40 mg in the emergency department. We will reassess him tomorrow to see if he needs further IV diuresis otherwise he will continue his oral diuretic. We will restart him on metoprolol 25 mg twice daily. Will obtain echocardiogram during this hospitalization. Monitor on telemetry. Daily weights. Low-sodium diet. (3) Atrial fibrillation Conclusion/Plan: This appears to be persistent atrial fibrillation. He presented tachycardic with heart rates in the 110s to 120s. He is now rate controlled after receiving Lopressor IV in the emergency department. Suspect this was exacerbated by the discontinuation of his metoprolol. We will start him on 25 mg twice daily. Obtain echocardiogram tomorrow. Check a TSH. Monitor on telemetry. Continue his Coumadin and check an INR in the morning. Qualifiers: Atrial fibrillation type: longstanding persistent Qualified Code(s): I48.11 - Longstanding persistent atrial fibrillation (4) Elevated troponin Conclusion/Plan: Suspect this is likely demand ischemia given his elevated blood pressure and tachycardia on presentation. Troponin was only mildly elevated and is already decreasing. His EKG does not suggest ischemia and he has no symptoms of angina. We will monitor him on telemetry and recheck a troponin tomorrow morning. He may benefit him a stress test on outpatient basis given his history of coronary artery disease. (5) COPD (chronic obstructive pulmonary disease) Conclusion/Plan: Stable and not in exacerbation. We will continue his home inhalers as needed. (6) BPH (benign prostatic hyperplasia) Conclusion/Plan: Stable. We will continue his home medications. - Lab Results Lab results reviewed: Yes Clement Bones: 08/31/19 19:58 08/31/19 19:58 - Diagnostic Imaging Results Diagnostic Imaging Results: positive: Final report reviewed - EKG Results EKG Interpreted Independently: Yes EKG Comparison: Unchanged from prior EKG EKG Findings: His EKG shows atrial relation with occasional PVCs. His heart is 104. No obvious ST segment changes. Core Measures - Anticipated LOS I expect patient to be DC'd or transferred within 96 hours.: Yes - Issues Hospital Issues and Management Plan: 84-year-old male with history of COPD, atrial fibrillation presents with hy pertensive urgency and dyspnea. Will admit for mild CHF for diuresis and trending troponin. We will also control his blood pressure indications IV pushes as needed and oral medications. - DVT/VTE - Prophylaxis VTE/DVT Device ordered at admit?: Yes VTE/DVT Prophylaxis med ordered at admit?: No
[2019-08-31] MEDS ORDERED: LABETALOL 20 MG/4 ML SYRINGE IVP PRN (22:27)
[2019-08-31] MEDS: METOPROLOL TARTRATE 25 MG TABLET PO SCH (22:51)
[2019-08-31] MEDS: hydrALAZINE 25 MG TABLET PO SCH (22:52)
[2019-09-01] MEDS: SODIUM CHLORIDE FLUSH 0.9% 10 ML SYRINGE IVP SCH ×2 (02:17→09:15)
[2019-09-01 05:28] LABS: BASOPHILS % (AUTO) 0.9 %; EOSINOPHILS % (AUTO) 2.9 %; HGB - HEMOGLOBIN 13.7 g/dL (14.0-18.0); LYMPHOCYTES % (AUTO) 27.8 %; MEAN CORPUSCULAR HEMOGLOBIN 25.9 pg (27.0-31.0); MEAN CORPUSCULAR HGB CONC 31.1 g/dL (32.0-36.0); MEAN CORPUSCULAR VOLUME 83.4 fL (80.0-94.0); MEAN PLATELET VOLUME 11.1 fL (7.4-11.4); MONOCYTES % (AUTO) 12.1 %; NEUTROPHILS % (AUTO) 55.6 %; PLT - PLATELET COUNT 243 10^3/uL (130-450); RED BLOOD COUNT 5.29 10^6/uL (4.70-6.10); RED CELL DISTRIBUTION WIDTH 16.8 % (12.0-15.0); WHITE BLOOD COUNT 13.7 x10^3/uL (4.8-10.8)
[2019-09-01 05:32] LABS: INR 2.9 (0.8-1.2)
[2019-09-01 05:34] LABS: ABNORMAL LYMPHS % (MANUAL) 0 %
[2019-09-01 05:40] LABS: CALCIUM 9.1 mg/dL (8.5-10.3); CREATININE 0.8 mg/dL (0.6-1.2); MAGNESIUM 2.1 mg/dL (1.7-2.8); PHOSPHORUS 3.3 mg/dL (2.5-4.6)
[2019-09-01 06:03] LABS: BAND NEUTROPHILS % (MANUAL) 2 %; DIFFERENTIAL COMMENT MANUAL DIFFERENTIAL; EOSINOPHILS # (MANUAL) 0.7 10^3/uL (0-0.7); LYMPHOCYTES # (MANUAL) 2.1 10^3/uL (1.5-3.5); LYMPHOCYTES % (MANUAL) 15 %; MONOCYTES # (MANUAL) 1.8 10^3/uL (0.0-1.0); PLATELET ESTIMATE, MANUAL NORMAL (130-450,000) (NORMAL); RBC MORPHOLOGY (MULTIPLE) NORMAL APPEARANCE (NORMAL)
[2019-09-01] MEDS ORDERED: IPRATROPIUM/ALBUTEROL 3 ML NEB INH PRN (08:44)
[2019-09-01] MEDS ORDERED: ALBUTEROL NEB 2.5 MG/3 ML INH PRN (08:44)
[2019-09-01] MEDS ORDERED: CETIRIZINE 10 MG TABLET PO SCH (09:00)
[2019-09-01] MEDS ORDERED: FINASTERIDE 5 MG TABLET PO SCH (09:00)
[2019-09-01] MEDS ORDERED: amLODIPine 5 MG TABLET PO SCH (09:00)
[2019-09-01] MEDS ORDERED: TAMSULOSIN 0.4 MG CAPSULE PO SCH (09:00)
[2019-09-01] MEDS ORDERED: ASPIRIN EC 81 MG TABLET PO SCH (09:00)
[2019-09-01] MEDS ORDERED: FUROSEMIDE 20 MG/2 ML VIAL IVP SCH ×2 (09:00)
[2019-09-01] MEDS: METOPROLOL TARTRATE 25 MG TABLET PO SCH (09:15)
[2019-09-01] MEDS: hydrALAZINE 25 MG TABLET PO SCH (09:20)
--- NOTE | 2019-09-01 11:21 | PHARMACY PROGRESS NOTE ---
- Best Possible Medication History Admit Date and Time: 08/31/193 Processed by: Pharmacy Medication History completed: Yes Patient Interview: Completed Secondary Source(s): Pharmacy records (PATIENT INTERVIEWED BY PHARMACY AND NURSING, PATIENT CONFIRMED HOME MEDICATIONS ), Insurance records As the person ultimately responsible for medication therapy, providers are able to order a medication from an existing home medication list in [facility] via the "Reconcile Routine" prior to Confirmation of that medication by technical support coordinator. Such practice is discouraged except when the physician, in their clinical judgment, deems that a medical need exists for a medication without regard to previous use.
[2019-09-01] MEDS ORDERED: WARFARIN 5 MG TABLET PO SCH (14:00)
[2019-09-01 14:11] LABS: BILIRUBIN,URINE NEGATIVE (NEGATIVE); GLUCOSE, URINE (UA) NEGATIVE (NEGATIVE); KETONES,URINE (UA) NEGATIVE (NEGATIVE); LEUKOCYTE ESTERASE, URINE NEGATIVE (NEGATIVE); NITRITE,URINE NEGATIVE (NEGATIVE); OCCULT BLOOD,URINE TRACE-INTA (NEGATIVE); PH,URINE 7.5 PH (5.0-7.5); PROTEIN,URINE NEGATIVE (NEGATIVE); UROBILINOGEN,URINE 1 (NORMAL) E.U./dL (NORMAL)
[2019-09-01 14:14] LABS: CLARITY,URINE CLEAR (CLEAR)
[2019-09-01 14:18] LABS: BACTERIA,URINE None Seen /HPF (None Seen); RBC,URINE 0-5 /HPF (0-5); SQUAMOUS EPITHELIAL CELL,UR NONE SEEN (<= Few)
--- NOTE | 2019-09-01 14:59 | Discharge Plan ---
Discharge Plan Problem Reviewed?: Yes Disposition: Home, Self Care Condition: Stable Diet: Cardiac Activity Restrictions: Activity as Tolerated Shower Restrictions: No (fall precaution) Instruction Topics: Heart Failure Meds Control, ED HTN Established Health Concerns: hypertension, heart failure Plan of Treatment: You present ER with uncontrolled HTN, it is likely due to your hold of your metoprolol medication, advise you continue the medication Metoprolol as the schedule, and resume your home other medications as well. Your ECHO study still indicate you have mild to moderate heart failure, resume home medication as the schedule, and followup your drawbridge tender as out-patient, may have a stress test as out-pt as well. You walks in the hallway, you are d/c as a stable conditions. Care Goals: stabilization and improvement of your medical conditions Assessment: discuss the care plan with you, you understood and agreed. Additional Instructions or Follow Up instructions: you may followup your PCP in one week, followup your drawbridge tender as out-mario ent. Should your symptoms return or worsen, you may present ER or call 911 for help. [facility]-Up Care: [facility], [facility] No Smoking: If you smoke, Please STOP! Call for help. Follow-up with: Skinny Sweet MD [Primary Care Provider] -
--- NOTE | 2019-09-01 15:11 | DISCHARGE SUMMARY ---
Discharge Summary Admit Date: 08/31/19 Discharge Date: 09/01/19 Discharging Provider: Kevin Meléndez Primary Care Provider: Skinny Allen Condition at Discharge: Stable Discharge Disposition: 01 Home, Self Care Discharge Facility Name: home - DIAGNOSES Discharge Diagnoses with Status of Each Condition: (1) Hypertensive urgency stable. pt report he did not take Metoprolol at the home. advise pt take Metoprolol as schedule, followup with his PCP and form setter/driver. Patient walked at the hallway and went to office to ask to be discharged to go home couple of times. patient is stable (2) Acute on chronic diastolic (congestive) heart failure New ECHO show ejection fraction was 45 to 50% as his previous one. advise pt take metoprolol as his home meds schedule, resume all his home meds (3) Atrial fibrillation stable. advise pt take Metoprolol and Coumadin, followup with PCP and form setter/driver to manage his Coumadin intake and PT/INR test. (4) Elevated troponin stable and slight elevated. Patient denies chest pain, shortness of breathing, patient walked in the hallway and no any distress.Advised the patient follow-up with form setter/driver to do outpatient stress test if clinically indicated. (5) COPD (chronic obstructive pulmonary disease) Stable and not in exacerbation. (6) BPH (benign prostatic hyperplasia) Stable. - [facility] History of Present Illness: refer from Dr. Terry's HPI on 08/31/2019 This is a very pleasant 84-year-old male with a past medical history significant for COPD/asthma, hypertension, coronary artery disease status post CABG, BPH, atrial fibrillation on coumadin who presents today due to having an elevated blood pressure at home as well as complaining of dyspnea. He reports he has been short of breath for the past few weeks but this has really progressed over the past 3 to 4 days. He has had no cough but has had worsening dyspnea at rest but quite severe with minimal exertion. He has not noticed any worsening of his minor lower extremity edema. He denies any chest pain. Reports no fevers, chills, nasal congestion, sore throat. Denies any recent sick contacts. He denies any orthopnea. He states his blood pressure has been elevated over the past week as high as nearly a systolic of 200. He reports he was previously on metoprolol and hydralazine by his striker off discontinued metoprolol about 2 weeks ago as he felt it may have been exacerbating his asthma. He states that since then, his blood pressure has been elevated when it was previously pretty well controlled. He does report a prior history of coronary artery disease and he had a CABG in 1998 at [facility] in [place]. He has had difficulty making a cardiology appointment recently but has been able to speak to his form setter/driver over the phone a few times. He does take aspirin and pravastatin. The patient does report that he was hospitalized at the end of March for a week in [place] due to sepsis from pneumonia. He states he felt like he returned to baseline a few weeks after that hospitalization. He denies any smoking. In the emergency department, he was found to be afebrile with temperature of 36.2 C. His heart rate varied from 104 to 142 and he was in atrial fibrillation. His initial blood pressure was 195/136. His respiratory was 20 and he was saturating 95% on room air. Lab significant for a white count of 13. 4. His initial troponin was 28.8 but this decreased to 26.2 approximately 1.5 hours later. His BNP was elevated at 144 which was close to his baseline. His chest x-ray was suggestive of mild pulmonary vascular congestion and cardiomegaly. His EKG showed atrial fibrillation with occasional PVCs. No obvious ST segment changes. He received 5 mg of Lopressor IV in the emergency department as well as 5 mg of Hydralazine IV. He also received 40 mg of Lasix IV. Given his ongoing dyspnea fact that his blood pressure remained elevated, medicine was consulted for admission. I did discuss goals of care the patient he would like to be a DNR. - HOSPITAL COURSE Hospital Course: Patient was admitted for dyspnea and hypotension urgency. Initially patient blood pressure was 195/136. Patient did not take metoprolol in the home because he was told by his striker off to hold metoprolol. After we give him intravenous metoprolol and added his home medications of blood pressure medicine, his blood pressure was controlled.Patient also was given intravenous diuretics in the ER, patient also take by oral Lasix in the home as well. Patient had echo done in the hospital which show patient still has 45 to 50% of EF. After treatment, patient was walking in the hallway and asked for discharge. Patient has no any medical distress. Patient troponin slightly elevated but is stable about at 25. Patient denied chest pain, shortness of breathing. Patient has no cardiac distress.Patient is advised to follow-up with his PCP and form setter/driver to have outpatient stress test, patient states he understand and will follow up with. Patient is discharged as hemodynamic stable condition. - ALLERGIES Allergies/Adverse Reactions: Allergies Allergy/AdvReac Type Severity Reaction Status Date / Time No Known Drug Allergies Allergy Verified 08/01/19 09:27 - MEDICATIONS Home Medications: Ambulatory Orders Medication Instructions Recorded Confirmed Finasteride [Proscar] 5 mg PO DAILY 08/05/12 08/31/19 Pravastatin Sodium 40 mg PO DAILY 08/05/12 08/31/19 Tamsulosin HCl [Flomax] 0.4 mg PO DAILY 06/26/16 08/31/19 Warfarin [Coumadin] 5 mg PO .Q RAMESH,TU,W,TH,SA 07/01/17 08/31/19 Cetirizine [ZyrTEC] 10 mg PO DAILY PRN 07/06/19 08/31/19 Furosemide [Lasix] 20 mg PO DAILY 07/06/19 08/31/19 Ipratropium/Albuterol [Combivent 4 gm IH DAILY 07/06/19 08/31/19 Respimat] Montelukast [Singulair] 10 mg PO QPM 07/06/19 08/31/19 hydrALAZINE [Apresoline] 25 mg PO BID 07/06/19 08/31/19 Albuterol 2.5 mg INH Q4HR PRN 09/01/19 09/01/19 Aspirin [Aspirin EC] 81 mg PO DAILY 09/01/19 09/01/19 Metoprolol Succinate 25 mg PO DAILY 09/01/19 09/01/19 Warfarin Sodium 7.5 mg PO .Q MONDAYS, Fridays09/01/19 09/01/19 amLODIPine [Norvasc] 5 mg PO DAILY 09/01/19 09/01/19 - PHYSICAL EXAM AT DISCHARGE General Appearance: positive: No acute distress, Alert. negative: Lethargic Eyes Bilateral: positive: Normal inspection, PERRL, No lid inflammation ENT: positive: ENT inspection nml, Pharynx nml, No signs of dehydration. negative: Purulent nasal drainage Neck: positive: Nml inspection, Thyroid nml, Trachea midline. negative: Thyromegaly, Stiff neck, Tracheal deviation Respiratory: positive: Chest non-tender, No respiratory distress, Breath sounds nml. negative: Wheezes, Rales, Rhonchi Cardiovascular: positive: No murmur, No gallop, Irregularly irregular. negative: Tachycardia, Bradycardia, Systolic murmur, Diastolic murmur Peripheral Pulses: positive: 2+ Abdomen: positive: Non-tender, No organomegaly, Nml bowel sounds, No distention. negative: Tenderness, Guarding, Rebound Back: positive: Nml inspection. negative: CVA tenderness (R), CVA tenderness (L) Skin: positive: Color nml, No rash, Warm, Dry. negative: Cyanosis, Diaphoresis, Pallor Extremities: positive: Non-tender, Full ROM, Nml appearance. negative: Calf tenderness, Jose's sign/cords Neurologic/Psychiatric: positive: Oriented x3, Motor nml, Sensation nml, Mood/af fect nml. negative: Weakness, Sensory loss, Facial droop, Slurred/abnml speech, Depressed mood/affect - LABS Result Diagrams: 09/01/19 04:50 09/01/19 04:50 - FOLLOW UP Follow Up: You present ER with uncontrolled HTN, it is likely due to your hold of your metoprolol medication, advise you continue the medication Metoprolol as the schedule, and resume your home other medications as well. Your ECHO study still indicate you have mild to moderate heart failure, resume home medication as the schedule, and followup your form setter/driver as out-patient, may have a stress test as out-pt as well. You walks in the hallway, you are d/c as a stable conditions. you may followup your PCP in one week, followup your form setter/driver as out- patient. Should your symptoms return or worsen, you may present ER or call 911 for help. - TIME SPENT Time Spent in Discharge (Minutes): 30
[2019-09-01 15:40] VITALS: BP 154/95
[2019-09-01] MEDS ORDERED: MONTELUKAST 10 MG TABLET PO SCH (21:00)
[2019-09-01] MEDS ORDERED: PRAVASTATIN 40 MG TABLET PO SCH (21:00)
== END 2019-09-01 16:10 | disposition home or self-care (01) ==
LOC: ED 19:44 → MS2 22:14
PROVIDERS: ADMIT Internal Medicine; ATTEND Nurse Practitioner Gerontology
DX: I16.0 Hypertensive urgency (principal); I11.0 Hypertensive heart disease with heart failure; I50.33 Acute on chronic diastolic (congestive) heart failure; I48.91 Unspecified atrial fibrillation; I25.10 Atherosclerotic heart disease of native coronary artery without angina pectoris; I49.3 Ventricular premature depolarization; I25.2 Old myocardial infarction; R79.89 Other specified abnormal findings of blood chemistry; J44.9 Chronic obstructive pulmonary disease, unspecified; N40.0 Benign prostatic hyperplasia without lower urinary tract symptoms; G47.33 Obstructive sleep apnea (adult) (pediatric); Z79.01 Long term (current) use of anticoagulants; Z79.899 Other long term (current) drug therapy; Z95.1 Presence of aortocoronary bypass graft
CPT/HCPCS: 36415; 71045; 80048; 80053; 81001; 81599; 83690; 83735; 83880; 84100; 84443; 84484; 85025; 85610; 93005; 93306; 94640; 96374; 96375; 96376; 99284; 99285; A9270; 83036; 87086

== ENCOUNTER 2019-09-20 14:05 | Outpatient (CLI) | payer MEDICARE | END 2019-09-20 14:06 | disposition home or self-care (01) | LOC: LAB.S 14:05 | PROVIDERS: ATTEND Internal Medicine | DX: I48.91 Unspecified atrial fibrillation (principal); Z79.01 Long term (current) use of anticoagulants | CPT/HCPCS: 85610 ==

== ENCOUNTER 2019-10-19 09:36 | Outpatient (CLI) | payer MEDICARE | END 2019-10-19 09:37 | disposition home or self-care (01) | LOC: LAB.S 09:36 | PROVIDERS: ATTEND Internal Medicine | DX: I48.91 Unspecified atrial fibrillation (principal); Z79.01 Long term (current) use of anticoagulants | CPT/HCPCS: 85610 ==

== ENCOUNTER 2019-11-29 10:49 | Outpatient (CLI) | payer MEDICARE | END 2019-11-29 10:50 | disposition home or self-care (01) | LOC: LAB.S 10:49 | PROVIDERS: ATTEND Internal Medicine | DX: I48.91 Unspecified atrial fibrillation (principal); Z79.01 Long term (current) use of anticoagulants | CPT/HCPCS: 85610 ==

== ENCOUNTER 2019-12-15 10:39 | Outpatient (CLI) | payer MEDICARE | END 2019-12-15 10:40 | disposition home or self-care (01) | LOC: LAB.S 10:39 | PROVIDERS: ATTEND Registered Nurse | DX: I48.91 Unspecified atrial fibrillation (principal); Z79.01 Long term (current) use of anticoagulants | CPT/HCPCS: 85610 ==

== ENCOUNTER 2020-01-04 15:09 | Outpatient (CLI) | payer MEDICARE | END 2020-01-04 15:10 | disposition home or self-care (01) | LOC: LAB.S 15:09 | PROVIDERS: ATTEND Registered Nurse | DX: I48.91 Unspecified atrial fibrillation (principal); Z79.01 Long term (current) use of anticoagulants | CPT/HCPCS: 85610 ==

== ENCOUNTER 2020-02-15 14:56 | Outpatient (CLI) | payer MEDICARE | END 2020-02-15 14:57 | disposition home or self-care (01) | LOC: LAB.S 14:56 | PROVIDERS: ATTEND Nurse Practitioner Family | DX: I48.91 Unspecified atrial fibrillation (principal) | CPT/HCPCS: 85610 ==

== ENCOUNTER 2020-03-14 10:42 | Outpatient (CLI) | payer MEDICARE | END 2020-03-14 10:43 | disposition home or self-care (01) | LOC: LAB.S 10:42 | PROVIDERS: ATTEND Nurse Practitioner Family | DX: I48.91 Unspecified atrial fibrillation (principal) | CPT/HCPCS: 85610 ==

== ENCOUNTER 2020-04-04 10:55 | Outpatient (CLI) | payer MEDICARE ==
[2020-04-04 14:47] LABS: BASOPHILS # (AUTO) 0.1 10^3/uL (0.0-0.1); EOSINOPHILS # (AUTO) 0.2 10^3/uL (0.0-0.7); EOSINOPHILS % (AUTO) 1.7 %; HGB - HEMOGLOBIN 14.3 g/dL (14.0-18.0); LYMPHOCYTES # (AUTO) 3.3 10^3/uL (1.5-3.5); LYMPHOCYTES % (AUTO) 32.7 %; MEAN CORPUSCULAR HEMOGLOBIN 27.3 pg (27.0-31.0); MEAN CORPUSCULAR HGB CONC 30.9 g/dL (32.0-36.0); MEAN CORPUSCULAR VOLUME 88.4 fL (80.0-94.0); MEAN PLATELET VOLUME 11.4 fL (7.4-11.4); MONOCYTES # (AUTO) 1.3 10^3/uL (0.0-1.0); MONOCYTES % (AUTO) 12.7 %; NEUTROPHILS # (AUTO) 5.1 10^3/uL (1.5-6.6); NEUTROPHILS % (AUTO) 51.3 %; PLT - PLATELET COUNT 203 10^3/uL (130-450); RED BLOOD COUNT 5.24 10^6/uL (4.70-6.10); RED CELL DISTRIBUTION WIDTH 15.8 % (12.0-15.0); WHITE BLOOD COUNT 9.9 x10^3/uL (4.8-10.8)
[2020-04-04 15:00] LABS: HEMOGLOBIN A1c% 6.1 % (4.27-6.07)
[2020-04-04 15:05] LABS: ALBUMIN 4.5 g/dL (3.2-5.5); ALBUMIN/GLOBULIN RATIO 1.5 (1.0-2.2); ALKALINE PHOSPHATASE 85 IU/L (42-121); ALT ALANINE AMINOTRANSFERASE 20 IU/L (10-60); AST ASPARTATE AMINOTRANSFERASE 27 IU/L (10-42); BILIRUBIN,TOTAL 1.3 mg/dL (0.2-1.0); BUN - BLOOD UREA NITROGEN 13 mg/dL (6-20); CALCIUM 9.6 mg/dL (8.5-10.3); CARBON DIOXIDE - CO2 26 mmol/L (21-32); CHLORIDE 102 mmol/L (101-111); CHOLESTEROL 139 mg/dL; GLUCOSE 103 mg/dL (70-100); HDL CHOLESTEROL 35 mg/dL; LDL CHOLESTEROL,CALCULATED 79 mg/dL; LDL/HDL RATIO 2.3 (<3.6); TOTAL PROTEIN 7.5 g/dL (6.7-8.2); VLDL CHOLESTEROL 25 mg/dL
== END 2020-04-04 10:56 | disposition home or self-care (01) ==
LOC: LAB.S 10:55
PROVIDERS: ATTEND Nurse Practitioner Family
DX: E78.5 Hyperlipidemia, unspecified (principal); I10 Essential (primary) hypertension; Z13.1 Encounter for screening for diabetes mellitus
CPT/HCPCS: 36415; 80053; 80061; 83036; 83721; 84443; 85025

== ENCOUNTER 2020-04-16 13:48 | Outpatient (CLI) | payer MEDICARE | END 2020-04-16 13:49 | disposition home or self-care (01) | LOC: LAB.S 13:48 | PROVIDERS: ATTEND Nurse Practitioner Family | DX: I48.91 Unspecified atrial fibrillation (principal) | CPT/HCPCS: 85610 ==

== ENCOUNTER 2020-05-15 15:17 | Outpatient (CLI) | payer MEDICARE | END 2020-05-15 15:18 | disposition home or self-care (01) | LOC: LAB.S 15:17 | PROVIDERS: ATTEND Nurse Practitioner Family | DX: I48.91 Unspecified atrial fibrillation (principal) | CPT/HCPCS: 85610 ==

== ENCOUNTER 2020-06-18 08:54 | Outpatient (CLI) | payer MEDICARE | END 2020-06-18 08:55 | disposition home or self-care (01) | LOC: LAB.S 08:54 | PROVIDERS: ATTEND Nurse Practitioner Family | DX: I48.91 Unspecified atrial fibrillation (principal) | CPT/HCPCS: 36416; 85610 ==

== ENCOUNTER 2020-07-18 15:17 | Outpatient (CLI) | payer MEDICARE | END 2020-07-18 15:18 | disposition home or self-care (01) | LOC: LAB.S 15:17 | PROVIDERS: ATTEND Nurse Practitioner Family | DX: I48.91 Unspecified atrial fibrillation (principal) | CPT/HCPCS: 36416; 85610 ==

== ENCOUNTER 2020-08-17 09:16 | Outpatient (CLI) | payer MEDICARE | END 2020-08-17 09:17 | disposition home or self-care (01) | LOC: LAB.S 09:16 | PROVIDERS: ATTEND Nurse Practitioner Family | DX: I48.91 Unspecified atrial fibrillation (principal) | CPT/HCPCS: 36416; 85610 ==

== ENCOUNTER 2020-09-25 15:41 | Outpatient (CLI) | payer MEDICARE | END 2020-09-25 15:42 | disposition home or self-care (01) | LOC: LAB.S 15:41 | PROVIDERS: ATTEND Nurse Practitioner Family | DX: I48.91 Unspecified atrial fibrillation (principal) | CPT/HCPCS: 36416; 85610 ==

== ENCOUNTER 2020-10-18 13:41 | Outpatient (CLI) | payer MEDICARE | END 2020-10-18 13:42 | disposition home or self-care (01) | LOC: LAB.S 13:41 | PROVIDERS: ATTEND Nurse Practitioner Family | DX: I48.91 Unspecified atrial fibrillation (principal) | CPT/HCPCS: 36416; 85610 ==

== ENCOUNTER 2020-11-01 10:26 | Outpatient (CLI) | payer MEDICARE | END 2020-11-01 10:27 | disposition home or self-care (01) | LOC: LAB.S 10:26 | PROVIDERS: ATTEND Nurse Practitioner Family | DX: I48.91 Unspecified atrial fibrillation (principal) | CPT/HCPCS: 36416; 85610 ==

== ENCOUNTER 2020-11-15 15:27 | Outpatient (CLI) | payer MEDICARE | END 2020-11-15 15:28 | disposition home or self-care (01) | LOC: LAB.S 15:27 | PROVIDERS: ATTEND Nurse Practitioner Family | DX: I48.91 Unspecified atrial fibrillation (principal) | CPT/HCPCS: 36416; 85610 ==

== ENCOUNTER 2021-05-27 09:16 | Outpatient (CLI) | payer MEDICARE | END 2021-05-27 09:17 | disposition short-term general hospital (02) | LOC: EMS 09:16 | DX: S30.1XXA Contusion of abdominal wall, initial encounter (principal); R10.11 Right upper quadrant pain; R10.31 Right lower quadrant pain; R42 Dizziness and giddiness; W18.39XA Other fall on same level, initial encounter; Y92.003 Bedroom of unspecified non-institutional (private) residence as the place of occurrence of the external cause; Z79.01 Long term (current) use of anticoagulants | CPT/HCPCS: A0425; A0429 ==

== ENCOUNTER 2021-06-26 11:21 | Outpatient (CLI) | payer MEDICARE ==
[2021-06-26 14:18] LABS: INR 2.6 (0.8-1.2); PT - PROTHROMBIN TIME 28.6 secs (9.9-12.6)
== END 2021-06-26 11:22 | disposition home or self-care (01) ==
LOC: LAB.S 11:21
PROVIDERS: ATTEND Nurse Practitioner Family
DX: I48.91 Unspecified atrial fibrillation (principal)
CPT/HCPCS: 36415; 36416; 85610

== ENCOUNTER 2021-11-04 09:27 | Outpatient (CLI) | payer MEDICARE | END 2021-11-04 09:28 | disposition home or self-care (01) | LOC: LAB.S 09:27 | PROVIDERS: ATTEND Nurse Practitioner Family | DX: I48.91 Unspecified atrial fibrillation (principal) | CPT/HCPCS: 36416; 85610 ==

== ENCOUNTER 2021-12-03 10:41 | Outpatient (CLI) | payer MEDICARE | END 2021-12-03 10:42 | disposition home or self-care (01) | LOC: LAB.S 10:41 | PROVIDERS: ATTEND Nurse Practitioner Family | DX: I48.91 Unspecified atrial fibrillation (principal) | CPT/HCPCS: 36416; 85610 ==

== ENCOUNTER 2022-05-12 14:34 | Outpatient (CLI) | payer MEDICARE | END 2022-05-12 14:35 | disposition home or self-care (01) | LOC: LAB.S 14:34 | PROVIDERS: ATTEND Nurse Practitioner Family | DX: I48.91 Unspecified atrial fibrillation (principal) | CPT/HCPCS: 36416; 85610 ==

== ENCOUNTER 2022-05-29 08:00 | Outpatient (CLI) | payer MEDICARE ==
--- NOTE | 2022-05-29 17:23 | XRAY Report ---
PROCEDURE: Chest 2 View X-Ray INDICATIONS: WHEEZING TECHNIQUE: 2 views of the chest were acquired. COMPARISON: None. FINDINGS: Surgical changes and devices: Remote CABG. Lungs and pleura: No pleural effusions or pneumothorax. Question mild interstitial pulmonary edema. Mediastinum: Mediastinal contours appear normal. Mild cardiomegaly. Bones and chest wall: No suspicious bony lesions. Overlying soft tissues appear unremarkable. IMPRESSION: Question mild congestive heart failure exacerbation. Reviewed by: Baldo Marks MD on 05/29/2022 5:22 PM PDT Approved by: Baldo Marks MD on 05/29/2022 5:22 PM PDT Station ID: [id number]
== END 2022-05-29 23:59 | disposition home or self-care (01) ==
LOC: DI.S 08:00
PROVIDERS: ATTEND Physician Assistant
DX: R06.2 Wheezing (principal)

== ENCOUNTER 2022-06-06 09:52 | Outpatient (CLI) | payer MEDICARE | END 2022-06-06 09:53 | disposition home or self-care (01) | LOC: LAB.S 09:52 | PROVIDERS: ATTEND Nurse Practitioner Family | DX: I48.91 Unspecified atrial fibrillation (principal) | CPT/HCPCS: 36416; 85610 ==

== ENCOUNTER 2022-07-22 10:54 | Outpatient (CLI) | payer MEDICARE | END 2022-07-22 10:55 | disposition home or self-care (01) | LOC: LAB.S 10:54 | PROVIDERS: ATTEND Nurse Practitioner Family | DX: I48.91 Unspecified atrial fibrillation (principal) | CPT/HCPCS: 36416; 85610 ==

== ENCOUNTER 2022-08-26 09:44 | Outpatient (CLI) | payer MEDICARE | END 2022-08-26 09:45 | disposition home or self-care (01) | LOC: LAB.S 09:44 | PROVIDERS: ATTEND Nurse Practitioner Family | DX: I48.91 Unspecified atrial fibrillation (principal) | CPT/HCPCS: 36416; 85610 ==

== ENCOUNTER 2022-09-03 13:38 | Outpatient (CLI) | payer MEDICARE | END 2022-09-03 13:39 | disposition home or self-care (01) | LOC: LAB.S 13:38 | PROVIDERS: ATTEND Nurse Practitioner Family | DX: I48.91 Unspecified atrial fibrillation (principal) | CPT/HCPCS: 36416; 85610 ==

== ENCOUNTER 2022-09-10 13:43 | Outpatient (CLI) | payer MEDICARE | END 2022-09-10 13:44 | disposition home or self-care (01) | LOC: LAB.S 13:43 | PROVIDERS: ATTEND Nurse Practitioner Family | DX: I48.91 Unspecified atrial fibrillation (principal) | CPT/HCPCS: 36416; 85610 ==

== ENCOUNTER 2022-10-02 11:52 | Outpatient (CLI) | payer MEDICARE | END 2022-10-02 11:53 | disposition home or self-care (01) | LOC: LAB.S 11:52 | PROVIDERS: ATTEND Nurse Practitioner Family | DX: I48.91 Unspecified atrial fibrillation (principal) | CPT/HCPCS: 36416; 85610 ==

== ENCOUNTER 2022-11-19 14:05 | Outpatient (CLI) | payer MEDICARE | END 2022-11-19 14:06 | disposition home or self-care (01) | LOC: LAB.S 14:05 | PROVIDERS: ATTEND Nurse Practitioner Family | DX: I48.91 Unspecified atrial fibrillation (principal) | CPT/HCPCS: 36416; 85610 ==

== ENCOUNTER 2023-01-09 13:18 | Outpatient (CLI) | payer MEDICARE | END 2023-01-09 13:19 | disposition home or self-care (01) | LOC: LAB.S 13:18 | PROVIDERS: ATTEND Nurse Practitioner Family | DX: I48.91 Unspecified atrial fibrillation (principal) | CPT/HCPCS: 36416; 85610 ==

== ENCOUNTER 2023-01-10 04:16 | Outpatient (CLI) | payer MEDICARE | END 2023-01-10 23:59 | disposition critical access hospital (66) | LOC: EMS 04:16 | DX: R07.9 Chest pain, unspecified (principal) | CPT/HCPCS: A0425; A0429 ==

== ENCOUNTER 2023-01-10 04:45 | Emergency (ER) | payer MEDICARE ==
--- NOTE | 2023-01-10 04:48 | ED Physician Documentation ---
PD HPI CHEST PAIN - Stated complaint Stated Complaint: CHEST PX - History obtained from History obtained from: Patient, EMS - Additional information Additional information: BIBA. HPI from patient and EMS. Patient was woken from sleep at approximately 3 AM this morning due to substernal chest pain which she describes as burning. The pain does not radiate. Patient took sublingual nitroglycerin x 2 as well as 325 mg aspirin, and the symptoms have completely resolved by the time of EMS arrival. It is notable that the sublingual nitroglycerin had and 2018. The patient tells me he has never had to use sublingual nitroglycerin before. Patient tells me he had a similar episode waking from sleep last night which resolved after taking Tums. Patient's past medical history includes VA, four-vessel CABG. Patient tells me that he has a stress test scheduled in a few weeks.The reason for this is that he has been having gradually increasing dyspnea on exertion. His past medical history also includes COPD and asthma, and thus he was being evaluated by his it network architect for this dyspnea. Patient says that the it network architect expressed increasing concern that his dyspnea cannot be explained from a pulmonology standpoint and thus the patient was advised to speak with his healthcare administration intern about whether the dyspnea might be due to a cardiac issue. This is what led to the stress test being scheduled. Review of Systems Cardiac: reports: Chest pain / pressure. denies: Palpitations, Pedal edema, Calf pain Respiratory: reports: Dyspnea. denies: Cough GI: reports: Reviewed and negative Musculoskeletal: denies: Extremity swelling Neurologic: reports: Reviewed and negative PD PAST MEDICAL HISTORY - Past Medical History Cardiovascular: Congestive heart failure, Hypertension, Coronary artery disease, [place], Atrial fibrillation Respiratory: COPD, Pneumonia, Shortness of breath, Sleep apnea Neuro: Peripheral neuropathy GI: Colon polyps, Hepatitis : Benign prostate hypertrophy HEENT: Chronic vision loss, Chronic hearing loss Psych: None Musculoskeletal: Osteoarthritis Derm: None - Past Surgical History Past Surgical History: Yes General: Colonoscopy Cardiovascular: CABG HEENT: Cataracts Derm: Skin cancer surgery - Present Medications Home Medications: Ambulatory Orders Medication Instructions Recorded Confirmed Finasteride [Proscar] 5 mg PO DAILY 08/05/12 01/10/23 Pravastatin Sodium 60 mg PO DAILY 08/05/12 01/10/23 Tamsulosin HCl [Flomax] 0.4 mg PO DAILY 06/26/16 01/10/23 Warfarin [Coumadin] 5 mg PO DAILY 07/01/17 01/10/23 Furosemide [Lasix] 20 mg PO DAILY 07/06/19 01/10/23 Montelukast [Singulair] 10 mg PO QPM 07/06/19 01/10/23 hydrALAZINE [Apresoline] 25 mg PO BID 07/06/19 01/10/23 Albuterol 2.5 mg INH Q4HR PRN 09/01/19 01/10/23 Metoprolol Succinate 12.5 mg PO BID 09/01/19 01/10/23 Warfarin Sodium 7.5 mg PO OAW 09/01/19 01/10/23 amLODIPine [Norvasc] 5 mg PO DAILY 09/01/19 01/10/23 Albuterol Sulfate [Proair 90 mcg IH Q4HR PRN 01/10/23 01/10/23 Respiclick] Fluticasone Propion/Salmeterol 2 puffs INH DAILY 01/10/23 01/10/23 [Wixela 500-50 Inhub] Tiotropium [place] [Spiriva 2 puffs INH DAILY 01/10/23 01/10/23 Respimat] - Allergies Allergies/Adverse Reactions: Allergies Allergy/AdvReac Type Severity Reaction Status Date / Time No Known Drug Allergies Allergy Verified 01/10/23 04:55 - Social History Does the pt smoke?: No Smoking Status: Former smoker Does the pt drink ETOH?: Yes Does the pt have substance abuse?: No - Immunizations Immunizations are current?: No - POLST Patient has POLST: No PD ED PE NORMAL - Vitals Vital signs reviewed: Yes - General General: Alert and oriented X 3, No acute distress, Well developed/nourished - HEENT HEENT: Moist mucous membranes - Neck Neck: Supple, no meningeal sign - Cardiac Cardiac: No murmur, No gallop, No rub - Respiratory Respiratory: No respiratory distress, Clear bilaterally - Abdomen Abdomen: Soft, Non tender - Derm Derm: Normal color, Warm and dry - Extremities Extremities: No edema PD ED PE EXPANDED - Cardiac Cardiac: Regular Rate, Irregularly irregular Results - Vitals Vitals: Vital Signs - 24 hr 01/10/23 01/10/23 01/10/23 04:48 05:30 06:30 Temperature 36.3 C L Heart Rate 64 59 L 65 Respiratory 22 28 H 20 Rate Blood Pressure 156/74 H 128/83 H 147/100 H O2 Saturation 98 97 96 01/10/23 07:00 Temperature Heart Rate 66 Respiratory 21 Rate Blood Pressure 149/103 H O2 Saturation 95 Oxygen O2 Source Room air - EKG (time done) No standard instances EKG releavant findings:: EKG personally interpreted by author of this note. Relevant findings are: Rate: Rate (enter#) (63) Rhythm: Atrial fibrillation [place]: Normal QRS: Normal Ischemia: Normal ST segments Other comments: Other comments (PVC) - Labs Labs: Laboratory Tests 01/10/23 01/10/23 01/10/23 05:05 05:05 05:05 WBC 7.7 RBC 5.60 Hgb 15.6 Hct 48.0 MCV 85.7 MCH 27.9 MCHC 32.5 RDW 13.8 Plt Count 186 MPV 10.6 Neut # (Auto) 4.6 Lymph # (Auto) 1.8 [place] # (Auto) 1.1 H Eos # (Auto) 0.1 Baso # (Auto) 0.1 Absolute Nucleated RBC 0.00 Nucleated RBC % 0.0 PT 24.1 H INR 2.3 H APTT 39.4 H Sodium 138 Potassium 3.9 Chloride 104 Carbon Dioxide 27 Anion Gap 7.0 BUN 12 Creatinine 0.9 Estimated GFR (MDRD) 80 L Glucose 108 H Calcium 10.5 H Total Bilirubin 1.3 H AST 32 ALT 17 Alkaline Phosphatase 82 Troponin I High Sens 229.7 H* Total Protein 6.8 Albumin 4.5 Globulin 2.3 Albumin/Globulin Ratio 2.0 Lipase 15 01/10/23 07:12 WBC RBC Hgb Hct MCV MCH MCHC RDW Plt Count MPV Neut # (Auto) Lymph # (Auto) [place] # (Auto) Eos # (Auto) Baso # (Auto) Absolute Nucleated RBC Nucleated RBC % PT INR APTT Sodium Potassium Chloride Carbon Dioxide Anion Gap BUN Creatinine Estimated GFR (MDRD) Glucose Calcium Total Bilirubin AST ALT Alkaline Phosphatase Troponin I High Sens 323.9 H* Total Protein Albumin Globulin Albumin/Globulin Ratio Lipase - Rads (name of study) chest xray Relevant Findings:: Prelim report reviewed, See rad report PD Medical Decision Making - ED course Complexity details: reviewed results, re-evaluated patient, considered differential, d/w patient ED course: No findings on EKG to suggest ACS. On arrival, as well as on reevaluation later in stay, patient is asymptomatic. Of concern is that his high-sensitivity troponin is 224. Plan is to hold patient in the ED for a 2-hour repeat of this test. The result is pending at the end of my shift and thus care of patient is turned over to the oncoming ED physician (Dr. Pete)
[2023-01-10 05:16] LABS: BASOPHILS # (AUTO) 0.1 10^3/uL (0.0-0.1); BASOPHILS % (AUTO) 1.3 %; EOSINOPHILS # (AUTO) 0.1 10^3/uL (0.0-0.7); EOSINOPHILS % (AUTO) 1.8 %; HGB - HEMOGLOBIN 15.6 g/dL (14.0-18.0); LYMPHOCYTES # (AUTO) 1.8 10^3/uL (1.5-3.5); LYMPHOCYTES % (AUTO) 23.2 %; MEAN CORPUSCULAR HEMOGLOBIN 27.9 pg (27.0-31.0); MEAN CORPUSCULAR HGB CONC 32.5 g/dL (32.0-36.0); MEAN CORPUSCULAR VOLUME 85.7 fL (80.0-94.0); MEAN PLATELET VOLUME 10.6 fL (7.4-11.4); MONOCYTES # (AUTO) 1.1 10^3/uL (0.0-1.0); MONOCYTES % (AUTO) 13.8 %; NEUTROPHILS # (AUTO) 4.6 10^3/uL (1.5-6.6); NEUTROPHILS % (AUTO) 59.5 %; PLT - PLATELET COUNT 186 10^3/uL (130-450); RED CELL DISTRIBUTION WIDTH 13.8 % (12.0-15.0); WHITE BLOOD COUNT 7.7 x10^3/uL (4.8-10.8)
[2023-01-10 05:50] LABS: TROPONIN I HIGH SENSITIVITY 229.7 ng/L (2.3-19.7)
[2023-01-10 06:02] LABS: ALBUMIN 4.5 g/dL (3.2-5.5); BILIRUBIN,TOTAL 1.3 mg/dL (0.2-1.0); CALCIUM 10.5 mg/dL (8.5-10.3); CREATININE 0.9 mg/dL (0.6-1.3); POTASSIUM 3.9 mmol/L (3.5-4.5); TOTAL PROTEIN 6.8 g/dL (6.4-8.9)
[2023-01-10 06:03] LABS: INR 2.3 (0.8-1.2); PT - PROTHROMBIN TIME 24.1 secs (9.9-12.6)
[2023-01-10 06:11] LABS: PARTIAL THROMBOPLASTIN TIME 39.4 secs (24.9-33.3)
--- NOTE | 2023-01-10 08:47 | XRAY Report ---
PROCEDURE: Chest 1 View X-Ray INDICATIONS: chest pain TECHNIQUE: One view of the chest was acquired. COMPARISON: 05/29/2022 FINDINGS: Surgical changes and devices: Multiple median sternotomy wires are intact. Lungs and pleura: No pleural effusions or pneumothorax. Lungs are clear. Mediastinum: Cardiomediastinal contours are stable with cardiomegaly Bones and chest wall: No suspicious bony lesions. Overlying soft tissues appear unremarkable. IMPRESSION: Cardiomegaly. No acute cardiopulmonary abnormalities or focal airspace disease. Findings are concordant with preliminary interpretation provided by [facility]. Reviewed by: Derick Haley MD on 01/10/2023 8:45 AM PST Approved by: Derick Haley MD on 01/10/2023 8:45 AM PST Station ID: [id number]
[2023-01-10] MEDS ORDERED: CLOPIDOGREL 75 MG TABLET PO STA (09:06)
[2023-01-10] MEDS ORDERED: NITROGLYCERIN 0.2 MG/HR PATCH TOP SCH (09:06)
--- NOTE | 2023-01-10 09:44 | ED Physician Documentation ---
ED Addendum - Addendum Addendum: 01/10/23 09:40 The patient remains chest pain-free here. His repeat troponin was elevated into the 300s from the 229 previously. This does suggest an acute myocardial injury. Unclear whether unstable angina as he had improved on its own. Concern is the onset without exertion so would still place him in unstable angina versus non- STEMI category. His EKG had not shown any ST elevations. Past history is of atrial fibrillation he is on Coumadin with a therapeutic level of 2.3. He does not have any renal insufficiency. His blood count is good as is his platelet count. He has had prior coronary disease however with a remote history of four-vessel bypass with stable symptoms subsequently. He had seen cardiology for exertional dyspnea over the last month or 2 and was scheduled for stress test in a couple of weeks in [place]. However the current episode of pain with troponin elevation I believe declares an underlying ischemic heart process. I talked with the [facility] cardiology on-call who agreed the patient should be transferred for cardiology intervention and evaluation that we are unable to do here on would be. The [facility] transfer center states they did not have any cardiac beds available at their facilities and open the search to where we could find. I talked with Dr. Robertson who is cardiology on-call at [facility] and he agrees the patient would be a good candidate for cardiology evaluation. If bed spaces available defers to the hospitalist service. I did update the patient on these plans and proceedings before looking for transfer and he is in agreement.
[2023-01-10 11:16] VITALS: O2SAT 96
[2023-01-10 13:17] VITALS: BP 120/80
== END 2023-01-10 13:31 | disposition short-term general hospital (02) ==
LOC: EDUNIT# → ED 04:45
DX: I21.4 Non-ST elevation (NSTEMI) myocardial infarction (principal); I10 Essential (primary) hypertension; Z95.1 Presence of aortocoronary bypass graft
CPT/HCPCS: 36415; 71045; 80053; 83690; 84484; 85025; 85610; 85730; 93005; 99285; A9270

== ENCOUNTER 2023-01-10 13:40 | Outpatient (CLI) | payer MEDICARE | END 2023-01-10 23:59 | disposition short-term general hospital (02) | LOC: EMS 13:40 | PROVIDERS: ATTEND Emergency Medicine | DX: I21.4 Non-ST elevation (NSTEMI) myocardial infarction (principal) | CPT/HCPCS: A0425; A0428 ==

== ENCOUNTER 2023-01-20 13:41 | Outpatient (CLI) | payer MEDICARE | END 2023-01-20 13:42 | disposition home or self-care (01) | LOC: LAB.S 13:41 | PROVIDERS: ATTEND Nurse Practitioner Family | DX: I48.91 Unspecified atrial fibrillation (principal) | CPT/HCPCS: 36416; 85610 ==

== ENCOUNTER 2023-01-28 13:27 | Outpatient (CLI) | payer MEDICARE | END 2023-01-28 13:28 | disposition home or self-care (01) | LOC: LAB.S 13:27 | PROVIDERS: ATTEND Nurse Practitioner Family | DX: I48.91 Unspecified atrial fibrillation (principal) | CPT/HCPCS: 36416; 85610 ==

== ENCOUNTER 2023-02-10 10:40 | Outpatient (CLI) | payer MEDICARE | END 2023-02-10 10:41 | disposition home or self-care (01) | LOC: LAB.S 10:40 | PROVIDERS: ATTEND Nurse Practitioner Family | DX: I48.91 Unspecified atrial fibrillation (principal) | CPT/HCPCS: 36416; 85610 ==

== ENCOUNTER 2023-02-27 10:17 | Outpatient (CLI) | payer MEDICARE | END 2023-02-27 10:18 | disposition home or self-care (01) | LOC: LAB.S 10:17 | PROVIDERS: ATTEND Nurse Practitioner Family | DX: I48.91 Unspecified atrial fibrillation (principal) | CPT/HCPCS: 36416; 85610 ==

== ENCOUNTER 2023-03-10 13:29 | Outpatient (CLI) | payer MEDICARE | END 2023-03-10 13:30 | disposition home or self-care (01) | LOC: LAB.S 13:29 | PROVIDERS: ATTEND Nurse Practitioner Family | DX: I48.91 Unspecified atrial fibrillation (principal) | CPT/HCPCS: 36416; 85610 ==

== ENCOUNTER 2023-04-21 14:24 | Outpatient (CLI) | payer MEDICARE | END 2023-04-21 14:25 | disposition home or self-care (01) | LOC: LAB.S 14:24 | PROVIDERS: ATTEND Nurse Practitioner Family | DX: I48.91 Unspecified atrial fibrillation (principal) | CPT/HCPCS: 36416; 85610 ==

== ENCOUNTER 2023-06-11 09:20 | Outpatient (CLI) | payer MEDICARE | END 2023-06-11 09:21 | disposition home or self-care (01) | LOC: LAB.S 09:20 | PROVIDERS: ATTEND Nurse Practitioner Family | DX: I48.91 Unspecified atrial fibrillation (principal) | CPT/HCPCS: 36416; 85610 ==

== ENCOUNTER 2023-08-19 13:39 | Outpatient (CLI) | payer MEDICARE | END 2023-08-19 13:40 | disposition home or self-care (01) | LOC: LAB.S 13:39 | PROVIDERS: ATTEND Nurse Practitioner Family | DX: I48.91 Unspecified atrial fibrillation (principal) | CPT/HCPCS: 36416; 85610 ==

== ENCOUNTER 2023-08-25 10:06 | Emergency (ER) | payer MEDICARE ==
[2023-08-25 11:13] LABS: BASOPHILS # (AUTO) 0.1 10^3/uL (0.0-0.1); EOSINOPHILS # (AUTO) 0.2 10^3/uL (0.0-0.7); EOSINOPHILS % (AUTO) 2.1 %; HCT - HEMATOCRIT 44.2 % (42.0-52.0); HGB - HEMOGLOBIN 14.2 g/dL (14.0-18.0); LYMPHOCYTES # (AUTO) 2.4 10^3/uL (1.5-3.5); LYMPHOCYTES % (AUTO) 23.5 %; MEAN CORPUSCULAR HGB CONC 32.1 g/dL (32.0-36.0); MEAN PLATELET VOLUME 10.4 fL (7.4-11.4); MONOCYTES # (AUTO) 1.4 10^3/uL (0.0-1.0); MONOCYTES % (AUTO) 13.4 %; NEUTROPHILS # (AUTO) 6.1 10^3/uL (1.5-6.6); NEUTROPHILS % (AUTO) 59.5 %; PLT - PLATELET COUNT 185 10^3/uL (130-450); RED BLOOD COUNT 5.08 10^6/uL (4.70-6.10); WHITE BLOOD COUNT 10.2 x10^3/uL (4.8-10.8)
[2023-08-25 11:25] LABS: INR 3.5 (0.8-1.2); PT - PROTHROMBIN TIME 34.9 secs (9.9-12.6)
--- NOTE | 2023-08-25 14:25 | ED Physician Documentation ---
History of Present Illness - Stated complaint Stated Complaint: NOSEBLEED - Chief complaint Chief Complaint: Heent - History obtained from History obtained from: Patient - Additonal information Additional information: 88-year-old male had a nosebleed this morning at approximately 5 AM. Stopped shortly thereafter. Decided to come in and get evaluated as he has had to have cautery in his nose in the past. He has not had any bleeding since that time. He is on warfarin for atrial fibrillation. Review of Systems Constitutional: denies: Fever PD PAST MEDICAL HISTORY - Past Medical History Past Medical History: Yes Cardiovascular: High cholesterol, Atrial fibrillation, [place], Coronary artery disease, Congestive heart failure, Hypertension Respiratory: CPAP use, Shortness of breath, Sleep apnea, COPD, Pneumonia Neuro: Peripheral neuropathy Endocrine/Autoimmune: None GI: Hepatitis, None, Colon polyps : Benign prostate hypertrophy HEENT: Chronic hearing loss, Chronic vision loss Psych: None Musculoskeletal: None, Osteoarthritis Derm: None - Past Surgical History Past Surgical History: Yes General: Colonoscopy Cardiovascular: CABG, Cardiac catheterization HEENT: Cataracts Derm: Skin cancer surgery - Present Medications Home Medications: Ambulatory Orders Medication Instructions Recorded Confirmed Finasteride [Proscar] 5 mg PO DAILY 08/05/12 01/10/23 Pravastatin Sodium 60 mg PO DAILY 08/05/12 01/10/23 Tamsulosin HCl [Flomax] 0.4 mg PO DAILY 06/26/16 01/10/23 Warfarin [Coumadin] 5 mg PO DAILY 07/01/17 01/10/23 Furosemide [Lasix] 20 mg PO DAILY 07/06/19 01/10/23 Montelukast [Singulair] 10 mg PO QPM 07/06/19 01/10/23 hydrALAZINE [Apresoline] 25 mg PO BID 07/06/19 01/10/23 Albuterol 2.5 mg INH Q4HR PRN 09/01/19 01/10/23 Metoprolol Succinate 12.5 mg PO BID 09/01/19 01/10/23 Warfarin Sodium 7.5 mg PO OAW 09/01/19 01/10/23 amLODIPine [Norvasc] 5 mg PO DAILY 09/01/19 01/10/23 Doxycycline [Vibramycin] 100 mg PO BID #14 tablet 09/01/22 Finasteride [Proscar] 5 mg PO DAILY 09/01/22 09/01/22 Ipratropium/Albuterol [Duoneb] 3 ml INH Q6H #30 appful 09/01/22 Metoprolol Tartrate [Lopressor] 12.5 mg PO BID 09/01/22 09/01/22 Warfarin [Coumadin] 5 mg PO DAILY 09/01/22 09/01/22 amLODIPine [Norvasc] 5 mg PO DAILY 09/01/22 09/01/22 hydrALAZINE [Apresoline] 25 mg PO QD 09/01/22 09/01/22 predniSONE [Deltasone] 20 mg PO [id number] #21 tab 09/01/22 Albuterol Sulfate [Proair 90 mcg IH Q4HR PRN 01/10/23 01/10/23 Respiclick] Fluticasone Propion/Salmeterol 2 puffs INH DAILY 01/10/23 01/10/23 [Wixela 500-50 Inhub] Tiotropium [place] [Spiriva 2 puffs INH DAILY 01/10/23 01/10/23 Respimat] - Allergies Allergies/Adverse Reactions: Allergies Allergy/AdvReac Type Severity Reaction Status Date / Time No Known Drug Allergies Allergy Verified 08/25/23 10:27 - Social History Does the pt smoke?: No Smoking Status: Never smoker Does the pt drink ETOH?: Yes Does the pt have substance abuse?: No - Immunizations Immunizations are current?: Yes - POLST Patient has POLST: No PD ED PE NORMAL - Vitals Vital signs reviewed: Yes - General General: Alert and oriented X 3, No acute distress - HEENT HEENT: Moist mucous membranes, Other (small dried blood in r nare. no active bleeding. ) - Neck Neck: Supple, no meningeal sign - Cardiac Cardiac: RRR - Respiratory Respiratory: No respiratory distress, Clear bilaterally - Derm Derm: Warm and dry - Neuro Neuro: Alert and oriented X 3 Results - Vitals Vitals: Vital Signs - 24 hr 08/25/23 08/25/23 10:27 14:41 Temperature 36.2 C L 36.6 C Heart Rate 87 62 Respiratory 16 18 Rate Blood Pressure 149/87 H 144/72 H O2 Saturation 97 96 Oxygen O2 Source Room air - Labs Labs: Laboratory Tests 08/25/23 08/25/23 11:09 11:09 WBC 10.2 RBC 5.08 Hgb 14.2 Hct 44.2 MCV 87.0 MCH 28.0 MCHC 32.1 RDW 15.0 Plt Count 185 MPV 10.4 Neut # (Auto) 6.1 Lymph # (Auto) 2.4 [place] # (Auto) 1.4 H Eos # (Auto) 0.2 Baso # (Auto) 0.1 Absolute Nucleated RBC 0.00 Nucleated RBC % 0.0 PT 34.9 H INR 3.5 H PD Medical Decision Making - ED course Complexity details: reviewed results, re-evaluated patient, considered differe ayden, d/w patient ED course: 88 year old male with epistaxis earlier today. no further bleeding for approximately 7 hours. He is on warfarin INR 3.5. We will have him hold his warfarin for the next 2 days. No active bleeding currently. We will have him follow-up with his doctor for further care. No indication for cautery or packing. Patient counseled regarding signs and symptoms for which I believe an urgent re-evaluation would be necessary. Patient with good understanding of and agreement to plan and is comfortable going home at this time. This document was made in part using voice recognition software. While efforts are made to proofread this document, sound alike and grammatical errors may occur. Departure - Departure Disposition: 01 Home, Self Care Clinical Impression: Epistaxis Condition: Good Instructions: ED Nosebleed Follow-Up: Collette Trevino ARNP [Primary Care Provider] - As Needed Comments: Your blood counts are normal today. Your INR is elevated at 3.5. I would recommend holding your warfarin for the next 24 to 48 hours. You can also apply a small amount of Vaseline inside the nose to help moisten the area. There is no area to cauterize at this time. If you begin bleeding, please apply the nose clamp for 20 minutes and then recheck to see if you are still bleeding. Please do not blow your nose, stick anything in your nose or bump your nose for the next 48 hours. Return if you worsen. Forms: PCP List Discharge Date/Time: 08/25/23 14:42
[2023-08-25 14:41] VITALS: BP 144/72; O2SAT 96
== END 2023-08-25 14:42 | disposition home or self-care (01) ==
LOC: ED 10:06
DX: R04.0 Epistaxis (principal); I48.91 Unspecified atrial fibrillation; Z79.01 Long term (current) use of anticoagulants; E78.00 Pure hypercholesterolemia, unspecified; I11.0 Hypertensive heart disease with heart failure; I50.9 Heart failure, unspecified; I25.10 Atherosclerotic heart disease of native coronary artery without angina pectoris; Z95.1 Presence of aortocoronary bypass graft; G47.30 Sleep apnea, unspecified; J44.9 Chronic obstructive pulmonary disease, unspecified
CPT/HCPCS: 36415; 85025; 85610; 99283

== ENCOUNTER 2023-11-04 10:07 | Outpatient (CLI) | payer MEDICARE | END 2023-11-04 10:08 | disposition home or self-care (01) | LOC: LAB.S 10:07 | PROVIDERS: ATTEND Nurse Practitioner Family | DX: I48.91 Unspecified atrial fibrillation (principal) | CPT/HCPCS: 36416; 85610 ==